=== PATIENT | female | born 1955 | race American Indian/Alaskan Native ===

== ENCOUNTER 2018-06-25 14:37 | Emergency (ER) | payer SELFPAY ==
--- NOTE | 2018-06-25 15:32 | Emergency Department Report ---
ED Lower Extremity HPI - General Chief Complaint: Extremity Injury, Lower Stated Complaint: LT FOOT /BODY PAIN Time Seen by Provider: 06/25/18 15:26 Source: patient Mode of arrival: Ambulatory Limitations: No Limitations - History of Present Illness Initial Comments: This is a 63-year-old female nontoxic, well nourished in appearance, no acute signs of distress presents to the ED with c/o of acute on chronic left foot pain. Patient stated that she was diagnosed with foot spur. Patient seen her PCP Dr. Corea and had xrays done. Patient is scheduled to see orthopedic doctor this week for MRI. Patient today is requesting an MRI. Patient denies any new trauma. Patient denies any numbness, tingling, fever, chills, nausea, vomiting, chest pain, shortness of breath, headache, stiff neck. Patient denies any joint swelling or joint redness. Patient denies decreased range of motion. Patient stated has decreased gait due to pain. -: year(s) Injury: Foot: Left Severity: mild Severity scale (0 -10): 8 Improves With: immobilization Worsens With: weight bearing, palpation Associated Symptoms: able to partially bear weight, ambulatory. denies: snap/pop sensation, swelling, numbness, tingling, unable to bear weight - Related Data Allergies Allergy/AdvReac Type Severity Reaction Status Date / Time amitriptyline Allergy Unknown Verified 06/25/18 15:01 aripiprazole [From Abilify] Allergy Unknown Verified 06/25/18 15:02 ED Review of Systems ROS: Stated complaint: LT FOOT /BODY PAIN Other details as noted in HPI Constitutional: denies: chills, fever Eyes: denies: eye pain, eye discharge, vision change ENT: denies: ear pain, throat pain Respiratory: denies: cough, shortness of breath, wheezing Cardiovascular: denies: chest pain, palpitations Endocrine: no symptoms reported Gastrointestinal: denies: abdominal pain, nausea, diarrhea Genitourinary: denies: urgency, dysuria, discharge Musculoskeletal: denies: back pain, joint swelling, arthralgia Skin: denies: rash, lesions Neurological: denies: headache, weakness, paresthesias Psychiatric: denies: anxiety, depression Hematological/Lymphatic: denies: easy bleeding, easy bruising ED Past Medical Hx - Past Medical History Previous Medical History?: Yes Hx Psychiatric Treatment: Yes (Bi Polar, Schizophrenia, PTSD, Psychosis) - Surgical History Past Surgical History?: No - Social History Smoking Status: Never Smoker Substance Use Type: None ED Physical Exam - General Limitations: No Limitations General appearance: alert, in no apparent distress - Head Head exam: Present: atraumatic, normocephalic - Extremities Exam Extremities exam: Present: normal inspection, full ROM, tenderness (heel of left foot), normal capillary refill, other (normal santos test). Absent: joint swelling - Back Exam Back exam: Present: normal inspection, full ROM - Neurological Exam Neurological exam: Present: alert, oriented X3 - Psychiatric Psychiatric exam: Present: normal affect, normal mood - Skin Skin exam: Present: warm, dry, intact, normal color. Absent: rash ED Course Vital Signs 06/25/18 14:57 Temperature 98.2 F Pulse Rate 87 Respiratory 16 Rate Blood Pressure 127/56 O2 Sat by Pulse 97 Oximetry - Reevaluation(s) Reevaluation #1: 06/25/18 15:30 Patient is speaking in full sentences with no signs of distress noted. ED Lower Extremity MDM - Medical Decision Making This is a 63-year-old female that presents with left foot pain. Patient is stable and was examined by me. I referred patient to an orthopedic doctor for further evaluation for possible MRI. X-ray has been obtained in her PCP office as per patient within normal limits. Patient does have normal gait with no tenderness and no joint swelling. No ecchymosis. no joint redness or swelling. Not warm to touch. No signs of cellulites present. Patient stated has Tylneol and Tramadol for pain at home. Patient is discharged with Motrin. At time of discharge, the patient does not seem toxic or ill in appearance. No acute signs of distress noted. Patient agrees to discharge treatment plan of care. No further questions noted by the patient. Critical care attestation.: If time is entered above; I have spent that time in minutes in the direct care of this critically ill patient, excluding procedure time. ED Disposition Clinical Impression: Left foot pain Disposition: DC-01 TO HOME OR SELFCARE Is pt being admited?: No Does the pt Need Aspirin: No Condition: Stable Additional Instructions: Follow-up with a orthopedic doctor in 3-5 days or if symptoms worsen and continue return to emergency room as soon as possible. Referrals: PRIMARY CARE, [Referring] - 3-5 Days WINSTON BEE MD [Staff Physician] - 3-5 Days [facility] [Outside] - 3-5 Days
== END 2018-06-25 16:30 | disposition home or self-care (01) ==
LOC: ED 14:37
CPT/HCPCS: 99281

== ENCOUNTER 2018-06-27 17:48 | Inpatient (IN) | payer MEDICARE ==
[2018-06-27] MEDS ORDERED: PEPCID IV ONE (20:23)
[2018-06-27] MEDS ORDERED: NACL 0.9% 1000 ML 1,000 ML IV ONE (20:23)
[2018-06-27] MEDS ORDERED: ZOFRAN IV ONE (20:23)
[2018-06-27] MEDS ORDERED: PROTONIX IV ONE (20:23)
[2018-06-27] MEDS ORDERED: TYLENOL PO ONE (20:25)
--- NOTE | 2018-06-27 20:25 | Emergency Department Report ---
ED General Adult HPI - General Chief complaint: Chest Pain Stated complaint: CHEST PAIN/ALONZO Time Seen by Provider: 06/27/18 20:11 Source: patient, RN notes reviewed Mode of arrival: Stretcher Limitations: No Limitations - History of Present Illness Initial comments: This is a 63-year-old female, not known to this provider previously, reports that all of her private physicians are currently in [place]. Past medical history includes atrial fibrillation, presumably paroxysmal, and is currently on systemic anticoagulation, mony Also endorses a past history of asthma, diabetes, obesity, bipolar, schizophrenia, PTSD. Patient presents to the emergency room with a complaint of bright red blood emesis, 3-4 times today. This is accompanied by central chest pain, epigastric pain. The chest pain does not radiates to the back, arms or neck. There is chronic shortness of breath which is not a new, worsening or different. There is no bright red blood per rectum. No black, tarry stools. Patient endorses taking iron sulfate supplementation. Denies fever, positive cough, no lower abdominal pain, reports compliance with her systemic anticoagula tion, denies DVT, pulmonary embolus risk factors, and also reports no recent aspirin use. Symptoms are intermittent today, did not radiate anywhere, worse with palpation, attempting to eat, decreased with rest. -: Gradual Location: chest, abdomen Radiation: non-radiation Severity scale (0 -10): 5 Quality: aching Consistency: intermittent Improves with: other Worsens with: other Associated Symptoms: chest pain, loss of appetite, malaise, nausea/vomiting, weakness. denies: confusion, cough, diaphoresis, fever/chills, headaches, rash, seizure, shortness of breath, syncope - Related Data Allergies Allergy/AdvReac Type Severity Reaction Status Date / Time amitriptyline Allergy Unknown Verified 06/27/18 18:03 aripiprazole [From Abilify] Allergy Unknown Verified 06/27/18 18:03 ED Review of Systems ROS: Stated complaint: CHEST PAIN/ALONZO Other details as noted in HPI Constitutional: malaise Eyes: denies: eye discharge ENT: denies: epistaxis Respiratory: denies: wheezing Cardiovascular: chest pain Gastrointestinal: abdominal pain, hematemesis. denies: melena, hematochezia Genitourinary: denies: dysuria Musculoskeletal: arthralgia, myalgia Skin: denies: lesions Neurological: weakness Psychiatric: anxiety ED Past Medical Hx - Past Medical History Previous Medical History?: Yes Hx Diabetes: Yes Hx Psychiatric Treatment: Yes (Bi Polar, Schizophrenia, PTSD, Psychosis) Hx Asthma: Yes - Social History Smoking Status: Never Smoker Substance Use Type: None ED Physical Exam - General Limitations: No Limitations General appearance: alert, anxious, obese - Head Head exam: Present: atraumatic, normocephalic - Eye Eye exam: Present: normal appearance, EOMI - ENT ENT exam: Present: normal exam, normal orophraynx, mucous membranes moist, normal external ear exam - Neck Neck exam: Present: normal inspection, full ROM. Absent: tenderness, meningi smus - Respiratory Respiratory exam: Present: normal lung sounds bilaterally, chest wall tenderness, other (there is no breast tenderness. Chaperoned by nurse CONNER STEVENS). Absent: respiratory distress, wheezes, rales, rhonchi, stridor - Cardiovascular Cardiovascular Exam: Present: regular rate, normal rhythm, normal heart sounds. Absent: bradycardia, tachycardia, irregular rhythm, systolic murmur, diastolic murmur, rubs, gallop - GI/Abdominal GI/Abdominal exam: Present: soft. Absent: distended, tenderness, guarding, rebound, rigid, pulsatile mass - Rectal Rectal exam: Present: normal inspection, normal rectal tone, heme (-) stool, fecal impaction, other (chaperoned by CONNER Hoffman). Absent: heme (+) stool, bloody stool - Extremities Exam Extremities exam: Present: normal inspection, full ROM. Absent: pedal edema, joint swelling - Back Exam Back exam: Present: normal inspection, full ROM. Absent: tenderness, CVA tenderness (R), paraspinal tenderness, vertebral tenderness - Neurological Exam Neurological exam: Present: alert, oriented X3, other (Extraocular movements intact. Tongue midline. No facial droop. Facial sensation intact to light touch in the V1, V2, V3 distribution bilaterally. 5 and 5 strength in 4 extremities.. Sensation is intact to light touch in 4 extremities.). Absent: motor sensory deficit - Psychiatric Psychiatric exam: Present: anxious - Skin Skin exam: Present: warm, dry, intact, normal color. Absent: rash ED Course Vital Signs 06/27/18 06/27/18 18:04 20:11 Temperature 99.1 F 99.8 F H Pulse Rate 82 78 Respiratory 20 18 Rate Blood Pressure 111/46 Blood Pressure 127/50 [Left] O2 Sat by Pulse 99 100 Oximetry - Reevaluation(s) Reevaluation #1: 06/27/18 21:41 Differential diagnosis, including but not limited to: GERD, gastritis, hiatal hernia, upper GI bleed, Li-Ballard tear, retroperitoneal hematoma, pneumonia, pneumothorax, acute coronary syndrome Assessment and plan: 63-year-old female, no tachycardia, no hypoxia, on systemic anticoagulation, low risk by well's criteria, who reports no DVT or pulmonary embolus risk factors, with reproducible chest wall pain, and reported episodes of bloody emesis, in the context of being on systemic anticoagulation. Has a low-grade temperature, but otherwise has reassuring vital signs. Found to have renal insufficiency, hypomagnesemia, mildly anemic. Not acutely asymptomatic in terms of anemia, and hemoglobin greater than 7, therefore does not require packed red blood cell transfusion. Patient will remain nothing by mouth, she will be given pain medication, nausea medication, Protonix, per anticoagulation will be held, and we will obtain a gastroenterology consult. X-ray of the chest is unremarkable, lactic acid within normal limits, urinalysis pending, and a noncontrast CT scan of the abdomen and pelvis is pending interpretation. Patient will require admission to the hospital for her chest pain, anemia, hypomagnesemia, and report of gastrointestinal bleed. Aspirin will be withheld given history of GI bleed. Hospital team will admit the patient. Reevaluation #2: 06/27/18 21:45 Dr Dashawn Miller accepts to the medical service. Reevaluation #3: 06/27/18 22:27 CT scan suggests constipation, possible pneumonia versus pneumonitis. Antibiotics ordered. - Consultations Consultation #1: 06/27/18 21:48 Gastroenterology, Dr. Bland, agrees to follow in consultation. ED Medical Decision Making - Lab Data Result diagrams: 06/27/18 20:41 06/27/18 20:41 Vital Signs 06/27/18 06/27/18 18:04 20:11 Temperature 99.1 F 99.8 F H Pulse Rate 82 78 Respiratory 20 18 Rate Blood Pressure 111/46 Blood Pressure 127/50 [Left] O2 Sat by Pulse 99 100 Oximetry Lab Results 06/27/18 06/27/18 06/27/18 Range/Units 20:41 20:41 20:41 WBC 11.5 H (4.5-11.0) K/mm3 RBC 3.73 (3.65-5.03) M/mm3 Hgb 9.3 L (10.1-14.3) gm/dl Hct 29.0 L (30.3-42.9) % MCV 78 L (79-97) fl MCH 25 L (28-32) pg MCHC 32 (30-34) % RDW 14.0 (13.2-15.2) % Plt Count 199 (140-440) K/mm3 Lymph % (Auto) 18.6 (13.4-35.0) % [place] % (Auto) 9.5 H (0.0-7.3) % Eos % (Auto) 1.6 (0.0-4.3) % Baso % (Auto) 0.2 (0.0-1.8) % Lymph # 2.2 (1.2-5.4) K/mm3 [place] # 1.1 H (0.0-0.8) K/mm3 Eos # 0.2 (0.0-0.4) K/mm3 Baso # 0.0 (0.0-0.1) K/mm3 Seg Neutrophils % 70.1 H (40.0-70.0) % Seg Neutrophils # 8.1 H (1.8-7.7) K/mm3 APTT 29.7 (24.2-36.6) Sec. Sodium (137-145) mmol/L Potassium (3.6-5.0) mmol/L Chloride (98-107) mmol/L Carbon Dioxide (22-30) mmol/L Anion Gap mmol/L BUN (7-17) mg/dL Creatinine (0.7-1.2) mg/dL Estimated GFR ml/min BUN/Creatinine Ratio % Glucose (65-100) mg/dL Lactic Acid 0.70 (0.7-2.0) mmol/L Calcium (8.4-10.2) mg/dL Magnesium (1.7-2.3) mg/dL Total Bilirubin (0.1-1.2) mg/dL AST (5-40) units/L ALT (7-56) units/L Alkaline Phosphatase (35-129) units/L Troponin T (0.00-0.029) ng/mL Total Protein (6.3-8.2) g/dL Albumin (3.9-5) g/dL Albumin/Globulin Ratio % Lipase (13-60) units/L Blood Type 06/27/18 06/27/18 Range/Units 20:41 20:47 WBC (4.5-11.0) K/mm3 RBC (3.65-5.03) M/mm3 Hgb (10.1-14.3) gm/dl Hct (30.3-42.9) % MCV (79-97) fl MCH (28-32) pg MCHC (30-34) % RDW (13.2-15.2) % Plt Count (140-440) K/mm3 Lymph % (Auto) (13.4-35.0) % [place] % (Auto) (0.0-7.3) % Eos % (Auto) (0.0-4.3) % Baso % (Auto) (0.0-1.8) % Lymph # (1.2-5.4) K/mm3 [place] # (0.0-0.8) K/mm3 Eos # (0.0-0.4) K/mm3 Baso # (0.0-0.1) K/mm3 Seg Neutrophils % (40.0-70.0) % Seg Neutrophils # (1.8-7.7) K/mm3 APTT (24.2-36.6) Sec. Sodium 137 (137-145) mmol/L Potassium 3.5 L (3.6-5.0) mmol/L Chloride 98.9 (98-107) mmol/L Carbon Dioxide 26 (22-30) mmol/L Anion Gap 16 mmol/L BUN 26 H (7-17) mg/dL Creatinine 1.7 H (0.7-1.2) mg/dL Estimated GFR 37 ml/min BUN/Creatinine Ratio 15 % Glucose 196 H (65-100) mg/dL Lactic Acid (0.7-2.0) mmol/L Calcium 8.4 (8.4-10.2) mg/dL Magnesium 1.50 L (1.7-2.3) mg/dL Total Bilirubin 0.60 (0.1-1.2) mg/dL AST 16 (5-40) units/L ALT 14 (7-56) units/L Alkaline Phosphatase 67 (35-129) units/L Troponin T < 0.010 (0.00-0.029) ng/mL Total Protein 6.8 (6.3-8.2) g/dL Albumin 3.5 L (3.9-5) g/dL Albumin/Globulin Ratio 1.1 % Lipase 32 (13-60) units/L Blood Type B POSITIVE - EKG Data -: EKG Interpreted by Me EKG shows normal: sinus rhythm Rate: normal - EKG Data When compared to previous EKG there are: previous EKG unavailable 06/27/18 21:43 Sinus, 72 beats per minutes, QTC within normal limits, left axis deviation, low voltage, motion artifact, poor O progression, no prior for comparison, not consistent with ST elevation myocardial infarction. - Radiology Data Radiology results: pending, report reviewed, image reviewed X-ray the chest is negative for acute disease. Critical care attestation.: If time is entered above; I have spent that time in minutes in the direct care of this critically ill patient, excluding procedure time. ED Disposition Clinical Impression: SHIRLEY (acute kidney injury), UGIB (upper gastrointestinal bleed), Hypomagnesemia, History of chest pain Disposition: -09 OP ADMIT IP TO THIS HOSP Is pt being admited?: Yes Condition: Good
[2018-06-27 20:57] LABS: Basophils % (Auto) 0.2 % (0.0-1.8); Eosinophils # (Auto) 0.2 K/mm3 (0.0-0.4); Eosinophils % (Auto) 1.6 % (0.0-4.3); Hemoglobin 9.3 gm/dl (10.1-14.3); Lymphocytes # (Auto) 2.2 K/mm3 (1.2-5.4); Lymphocytes % (Auto) 18.6 % (13.4-35.0); Mean Corpuscular HGB Conc 32 % (30-34); Mean Corpuscular Volume 78 fl (79-97); Monocytes # (Auto) 1.1 K/mm3 (0.0-0.8); Monocytes % (Auto) 9.5 % (0.0-7.3); Platelet Count 199 K/mm3 (140-440); Red Blood Count 3.73 M/mm3 (3.65-5.03)
[2018-06-27 21:18] LABS: Alanine Aminotransferase 14 units/L (7-56); Albumin 3.5 g/dL (3.9-5); BUN/Creatinine Ratio 15; Blood Urea Nitrogen 26 mg/dL (7-17); Calcium 8.4 mg/dL (8.4-10.2); Hemolysis Index 1
--- NOTE | 2018-06-27 21:30 | XRay Report ---
FINAL REPORT PROCEDURE: XR CHEST ROUTINE 2V TECHNIQUE: PA and lateral chest radiographs were obtained. CPT 62515 HISTORY: chest pain, nausea vomiting, low-grade fever COMPARISON: No prior studies are available for comparison. FINDINGS: Heart: Normal. Mediastinum/Vessels: Normal. Lungs/Pleural space: No radiographic evidence of infiltrate, pleural effusion, or pneumothorax. Bony thorax: No acute osseous abnormality. Other: IMPRESSION: No pulmonary infiltrates are identified.
[2018-06-27] MEDS ORDERED: MAGNESIUM SULFATE 2GM/50ML 2 GM/50 ML BAG IV ONE (21:37)
[2018-06-27 21:45] LABS: INR 1.3 (0.87-1.13)
--- NOTE | 2018-06-27 22:22 | Cat Scan Report ---
FINAL REPORT PROCEDURE: CT ABDOMEN PELVIS WO CON TECHNIQUE: Computerized axial tomography of the abdomen and pelvis was performed without intravenous contrast. This study is performed without intravascular contrast material and its sensitivity for ab dominal and pelvic pathology, including neoplasms, inflammation, abscess, free fluid, thrombosis, art erial dissection and infarction, is reduced compared with a contrast enhanced study. HISTORY: abdominal pain, hematemesis, fever COMPARISON: No prior studies are available for comparison. FINDINGS: Visualized lower thorax: Patchy ground-glass airspace opacities are seen in the visualized portions o f the right middle lobe, lingula, and left lower lobe, which may be related to pneumonia. Liver: Normal size and attenuation. Spleen: Normal size and attenuation. Gallbladder and biliary system: Gallbladder is present. Common bile duct is at the upper limit of nor mal in size. Pancreas: Normal. Adrenals: Normal. Kidneys: There are several right renal calculi with no obstruction, measuring up to 1 centimeter. No hydronephrosis. There is mild bilateral perinephric stranding. GI tract: There is a large volume of stool in the colon. Small hiatal hernia. No bowel obstruction or inflammation. Appendix is not visualized. Lymph nodes and mesentery: Normal. Vasculature: Normal. Bladder: Normal. Reproductive organs: Uterus is absent. Peritoneum: No free fluid. Musculoskeletal structures: No significant abnormality. Other: None. IMPRESSION: There are patchy ground-glass airspace opacities in the visualized portions of the lung bases, which could be infectious. Large volume of stool is present throughout the colon. Correlate for constipation.
[2018-06-27] MEDS ORDERED: NITROSTAT SL PRN (22:23)
[2018-06-27] MEDS ORDERED: ZOFRAN IV PRN (22:24)
[2018-06-27] MEDS ORDERED: ROCEPHIN/NS 1 GM/50 ML 1 GM/50 ML BAG IV ONE (22:25)
[2018-06-27] MEDS ORDERED: TYLENOL PO PRN (22:25)
[2018-06-27] MEDS ORDERED: PROVENTIL IH PRN (22:36)
[2018-06-27] MEDS ORDERED: D50W (25GM) Syringe IV PRN (22:39)
[2018-06-27] MEDS ORDERED: NACL 0.9% 1000 ML 1,000 ML IV SCH (23:00)
[2018-06-28 01:11] LABS: Hematocrit 28.1 % (30.3-42.9); Hemoglobin 9.1 gm/dl (10.1-14.3)
[2018-06-28 01:33] LABS: Creatine Kinase MB 1.1 ng/mL (0.0-4.0)
[2018-06-28 06:12] LABS: Hematocrit 28.7 % (30.3-42.9); Hemoglobin 9.4 gm/dl (10.1-14.3)
[2018-06-28] MEDS: HumaLOG SUB-Q SCH ×6 (06:18→22:37)
[2018-06-28] MEDS: NITRO-BID 2% TP SCH ×4 (06:19→17:58)
[2018-06-28 06:32] LABS: Creatine Kinase MB 1.2 ng/mL (0.0-4.0)
[2018-06-28 06:35] LABS: BUN/Creatinine Ratio 14; Blood Urea Nitrogen 22 mg/dL (7-17); Hemolysis Index 2
[2018-06-28] MEDS ORDERED: LEXISCAN IV ONE ×2 (09:55→09:57)
[2018-06-28] MEDS ORDERED: ZITHROMAX PO SCH (10:00)
--- NOTE | 2018-06-28 10:03 | Consultation ---
History of Present Illness - Reason for Consult Consult date: 06/28/18 chronic renal failure - History of Present Illness This is a 63 year old female who presents to the E.R with chief complaints of vomiting bright red blood for the past couple days and chest/epigastric pain. On evaluation pertinent labs revealed an elevated serum creatinine of 1.7. Patient reports she has knonw CKd stage 3 and follows with a kidney doctor in [place] and is scheduled to see them again on the . Patient has history of Diabetes mellitus, Asthma, Afib on Eliquis, Bipolar and Schizophrenia. We are being consulted for management of this patient's CKD stage 3. Past History Past Medical History: atrial fib, diabetes, other (PTSD, Bipolar, schizophrenia, Obesity) Past Surgical History: No surgical history Social history: no significant social history Family history: no significant family history Medications and Allergies Allergies Allergy/AdvReac Type Severity Reaction Status Date / Time amitriptyline Allergy Unknown Verified 06/27/18 18:03 aripiprazole [From Abilify] Allergy Unknown Verified 06/27/18 18:03 Home Medications Medication Instructions Recorded Confirmed Last Taken Type Calcium 06/28/18 06/25/18 History Eliquis PO BID 06/28/18 06/26/18 History Magnesium 06/28/18 Unknown History Quetiapine Fumarate [Seroquel] 100 mg PO QHS 06/28/18 06/28/18 06/26/18 History 100 MG Vitamin D (Nf) 06/28/18 06/25/18 History Vortioxetine Hydrobromide 20 mg PO HS 06/28/18 06/28/18 06/26/18 History [Brintellix] 20 MG Active Meds: Active Medications Acetaminophen (Tylenol) 650 mg PO Q4H PRN PRN Reason: Headache Albuterol (Proventil) 2.5 mg IH Q6HRT PRN PRN Reason: Shortness Of Breath Dextrose (D50w (25gm) Syringe) 50 ml IV PRN PRN PRN Reason: Hypoglycemia Sodium Chloride (Nacl 0.9% 1000 Ml) 1,000 mls @ 75 mls/hr IV DIRECT DORYS Piperacillin Sod/Tazobactam Sod (Zosyn/Ns 3.375gm/50ml) 3.375 gm in 50 mls @ 100 mls/hr IV Q8HR DORYS; Protocol Insulin Human Lispro (Humalog) 0 unit SUB-Q Q4HR [facility]; Protocol Last Admin: 06/28/18 06:19 Dose: Not Given Documented by: Morphine Sulfate (Morphine) 2 mg IV Q3H PRN PRN Reason: Pain, Moderate (4-6) Nitroglycerin (Nitrostat) 0.4 mg SL .Q5MIN PRN PRN Reason: Chest Pain Nitroglycerin (Nitro-Bid 2%) 0.5 inch TP QIDNTG [facility]; Protocol Last Admin: 06/28/18 06:19 Dose: Not Given Documented by: Ondansetron HCl (Zofran) 4 mg IV Q8H PRN PRN Reason: Nausea And Vomiting Pantoprazole Sodium (Protonix) 40 mg IV BID [facility] Regadenoson (Lexiscan) 0.4 mg IV ONCE ONE Stop: 06/28/18 09:58 Review of Systems Constitutional: fatigue, no weight loss, no weight gain, no fever, no chills Ears, nose, mouth and throat: no ear pain, no ear discharge, no tinnitis, no decreased hearing, no nose pain, no nasal congestion Cardiovascular: no orthopnea, no palpitations, no rapid/irregular heart beat, no syncope, no lightheadedness, no shortness of breath Respiratory: no cough with sputum, no excessive sputum, no hemoptysis, no shortness of breath, no dyspnea on exertion Gastrointestinal: hematemesis, no vomiting, no diarrhea, no constipation, no change in bowel habits Genitourinary Female: no dysmenorrhea, no pelvic pain, no flank pain, no menorrhagia, no dysuria, no urinary frequency, no urgency Rectal: no pain, no incontinence, no bleeding, no itching Musculoskeletal: no neck pain, no shooting arm pain, no arm numbness/tingling, no low back pain Integumentary: no rash, no pruritis, no redness, no sores, no wounds Neurological: no head injury, no paralysis, no weakness, no parathesias, no numbness Psychiatric: anxiety Endocrine: no cold intolerance, no heat intolerance, no polyphagia, no excessive thirst, no polydipsia, no polyuria Hematologic/Lymphatic: no easy bruising, no easy bleeding Exam - Vital Signs Vital signs: Vital Signs Temp Pulse Resp BP Pulse Ox 99.1 F 82 20 111/46 99 02/06/19 18:04 06/27/18 18:04 06/27/18 18:04 06/27/18 18:04 06/27/18 18:04 - General Appearance General appearance: well-developed, appears stated age, fatigue EENT: ATNC, PERRL, hearing intact, vision intact Neck: Present: neck supple, trachea midline Respiratory: Decreased Breath Sounds Heart: regular, S1S2 Gastrointestinal: Present: normoactive bowel sounds Integumentary: warm and dry Neurologic: alert and oriented x3 Musculoskeletal: Present: other (No edema) Psychiatric: agitated, other (crying stating she has no phone in room and that she does not like the hospital diaper) Results - Lab Results 06/28/18 05:39 06/28/18 05:39 Most recent lab results Calcium 8.0 mg/dL (8.4-10.2) L 06/28/18 05:39 Magnesium 2.00 mg/dL (1.7-2.3) 06/28/18 05:39 Assessment and Plan Chronic Kidney Disease, stage 3 secondary to DM -Serum creatinine 1.6 today and was 1.7 yesterday. Baseline serum creatinine unknown but patient states she has CKD stage 3 -No renal ultrasound due to obesity -Obtain urine lytes and eosinophils -Continue on NS@ 75 ml/hr -Avoid nephrotoxic agents -Monitor I/O's -Obtain daily weights -Monitor renal function Hematemesis: -EGD once cleared by cardiology per GI -NPO status -Eliquis on hold -On Protonix -GI onboard Constipation: -CT scan showed large volume of stool -Placed on Miralax Chest Pain -Stress test scheduled for today Pneumonia: -Revealed on Ct scan -On IV Rocephin Diabetes Mellitus: -On insulin -As per primary
--- NOTE | 2018-06-28 10:20 | Gastroenterology Consultation ---
<EMREALD CHENEY - Last Filed: 06/28/18 10:42> History of Present Illness - Reason for Consult Consult date: 06/28/18 GI bleed Requesting physician: JUANY CHANG - History of Present Illness Patient is a 63 y/o female with PMH of Afib (on Eliquis), asthma, DM, obesity, GERD, bipolar, schizophrenia, and PTSD who presented to ED with c/o vomiting blood to which GI has been consulted with associated epigastric pain and chest pain. Found to have renal insufficiency, hypomagnesemia, and mild anemia upon admission. Stress test pending for today. This morning patient was resting in bed w/o acute distress. Reports vomiting x 1 episode yesterday with a small amount of bright red bloody emesis with no further episodes overnight or this am. No melena or hematochezia. States chest pain is now improved and has no current abd pain. Denies fever, SOB, wt loss, dysphagia, odynophagia, or LGI symptoms. Constipation was seen on abd CT. Last dose of Eliquis was 2 days ago. No NSAID use. No hx of PUD or liver disease. Last EGD/colonoscopy approximately 2 years ago in [place] with negative results except hiatal hernia per pt report (records unavailable). Past History Past Medical History: other (as per HPI) Social history: denies: smoking, alcohol abuse Medications and Allergies Allergies Allergy/AdvReac Type Severity Reaction Status Date / Time amitriptyline Allergy Unknown Verified 06/27/18 18:03 aripiprazole [From Abilify] Allergy Unknown Verified 06/27/18 18:03 Home Medications Medication Instructions Recorded Confirmed Last Taken Type Calcium 06/28/18 06/25/18 History Eliquis PO BID 06/28/18 06/26/18 History Magnesium 06/28/18 Unknown History Quetiapine Fumarate [Seroquel] 100 mg PO QHS 06/28/18 06/28/18 06/26/18 History 100 MG Vitamin D (Nf) 06/28/18 06/25/18 History Vortioxetine Hydrobromide 20 mg PO HS 06/28/18 06/28/18 06/26/18 History [Brintellix] 20 MG Active Meds: Active Medications Acetaminophen (Tylenol) 650 mg PO Q4H PRN PRN Reason: Headache Albuterol (Proventil) 2.5 mg IH Q6HRT PRN PRN Reason: Shortness Of Breath Dextrose (D50w (25gm) Syringe) 50 ml IV PRN PRN PRN Reason: Hypoglycemia Sodium Chloride (Nacl 0.9% 1000 Ml) 1,000 mls @ 75 mls/hr IV DIRECT DOR[facility] Piperacillin Sod/Tazobactam Sod (Zosyn/Ns 3.375gm/50ml) 3.375 gm in 50 mls @ 100 mls/hr IV Q8HR [facility]; Protocol Insulin Human Lispro (Humalog) 0 unit SUB-Q Q4HR [facility]; Protocol Last Admin: 06/28/18 06:19 Dose: Not Given Documented by: Morphine Sulfate (Morphine) 2 mg IV Q3H PRN PRN Reason: Pain, Moderate (4-6) Nitroglycerin (Nitrostat) 0.4 mg SL .Q5MIN PRN PRN Reason: Chest Pain Nitroglycerin (Nitro-Bid 2%) 0.5 inch TP QIDNTG [facility]; Protocol Last Admin: 06/28/18 06:19 Dose: Not Given Documented by: Ondansetron HCl (Zofran) 4 mg IV Q8H PRN PRN Reason: Nausea And Vomiting Pantoprazole Sodium (Protonix) 40 mg IV BID [facility] Regadenoson (Lexiscan) 0.4 mg IV ONCE ONE Stop: 06/28/18 09:58 medications reviewed/updated as required Review of Systems - Review of Systems All systems: negative Gastrointestinal: hematemesis Exam - Constitutional Vital Signs: Temp Pulse Resp BP Pulse Ox 98.4 F 60 18 134/54 97 06/28/18 08:06 06/28/18 08:06 06/28/18 08:06 06/28/18 08:06 06/28/18 08:06 General appearance: no acute distress - EENT Eyes: PERRL, EOM intact ENT: hearing intact - Respiratory Respiratory: bilateral: CTA (anterior) - Cardiovascular Rhythm: regular Heart Sounds: Present: S1 & S2 - Gastrointestinal General gastrointestinal: Present: soft, non-tender, non-distended, normal bowel sounds - Neurologic Neurological: alert and oriented x3 - Labs CBC & Chem 7: 06/28/18 05:39 06/28/18 05:39 Lab Results: Laboratory Results - last 24 hr 06/27/18 06/27/18 06/27/18 20:41 20:41 20:41 WBC 11.5 H RBC 3.73 Hgb 9.3 L Hct 29.0 L MCV 78 L MCH 25 L MCHC 32 RDW 14.0 Plt Count 199 Lymph % (Auto) 18.6 Mcintosh % (Auto) 9.5 H Eos % (Auto) 1.6 Baso % (Auto) 0.2 Lymph # 2.2 Mcintosh # 1.1 H Eos # 0.2 Baso # 0.0 Seg Neutrophils % 70.1 H Seg Neutrophils # 8.1 H PT 16.6 H INR 1.30 H APTT Sodium Potassium Chloride Carbon Dioxide Anion Gap BUN Creatinine Estimated GFR BUN/Creatinine Ratio Glucose POC Glucose Lactic Acid 0.70 Calcium Magnesium Total Bilirubin AST ALT Alkaline Phosphatase Total Creatine Kinase CK-MB (CK-2) CK-MB (CK-2) Rel Index Troponin T Total Protein Albumin Albumin/Globulin Ratio Lipase Blood Type Antibody Screen 06/27/18 06/27/18 06/27/18 20:41 20:41 20:47 WBC RBC Hgb Hct MCV MCH MCHC RDW Plt Count Lymph % (Auto) Mcintosh % (Auto) Eos % (Auto) Baso % (Auto) Lymph # Mcintosh # Eos # Baso # Seg Neutrophils % Seg Neutrophils # PT INR APTT 29.7 Sodium 137 Potassium 3.5 L Chloride 98.9 Carbon Dioxide 26 Anion Gap 16 BUN 26 H Creatinine 1.7 H Estimated GFR 37 BUN/Creatinine Ratio 15 Glucose 196 H POC Glucose Lactic Acid Calcium 8.4 Magnesium 1.50 L Total Bilirubin 0.60 AST 16 ALT 14 Alkaline Phosphatase 67 Total Creatine Kinase CK-MB (CK-2) CK-MB (CK-2) Rel Index Troponin T < 0.010 Total Protein 6.8 Albumin 3.5 L Albumin/Globulin Ratio 1.1 Lipase 32 Blood Type B POSITIVE Antibody Screen Negative 06/28/18 06/28/18 06/28/18 00:53 00:53 05:39 WBC RBC Hgb 9.1 L 9.4 L Hct 28.1 L 28.7 L MCV MCH MCHC RDW Plt Count Lymph % (Auto) Mcintosh % (Auto) Eos % (Auto) Baso % (Auto) Lymph # Mcintosh # Eos # Baso # Seg Neutrophils % Seg Neutrophils # PT INR APTT Sodium Potassium Chloride Carbon Dioxide Anion Gap BUN Creatinine Estimated GFR BUN/Creatinine Ratio Glucose POC Glucose Lactic Acid Calcium Magnesium Total Bilirubin AST ALT Alkaline Phosphatase Total Creatine Kinase 139 H CK-MB (CK-2) 1.1 CK-MB (CK-2) Rel Index 0.7 Troponin T < 0.010 Total Protein Albumin Albumin/Globulin Ratio Lipase Blood Type Antibody Screen 06/28/18 06/28/18 05:39 06:05 WBC RBC Hgb Hct MCV MCH MCHC RDW Plt Count Lymph % (Auto) Mcintosh % (Auto) Eos % (Auto) Baso % (Auto) Lymph # Mcintosh # Eos # Baso # Seg Neutrophils % Seg Neutrophils # PT INR APTT Sodium 140 Potassium 4.0 Chloride 102.5 Carbon Dioxide 28 Anion Gap 14 BUN 22 H Creatinine 1.6 H Estimated GFR 39 BUN/Creatinine Ratio 14 Glucose 204 H POC Glucose 232 H Lactic Acid Calcium 8.0 L Magnesium 2.00 Total Bilirubin AST ALT Alkaline Phosphatase Total Creatine Kinase 127 CK-MB (CK-2) 1.2 CK-MB (CK-2) Rel Index 0.9 Troponin T < 0.010 Total Protein Albumin Albumin/Globulin Ratio Lipase Blood Type Antibody Screen Assessment and Plan 1.hematemesis 2.mild anemia -stool occult negative -H/H 9.4/28.7-stable (unknown baseline; related to renal insufficiency?) -continue to monitor H/H and transfuse as needed -patient reports 1 episode of vomiting a small amount of bright red blood yesterday. No melena, hematochezia, or current abd pain. Vomiting improved. -last EGD/colonoscopy in [place] approximately 2 years ago per pt reports with negative results except hiatal hernia (records unavailable) -currently HD stable-no active signs of bleeding this am -etiology-possibly 2/2 esophagitis vs other -will consider EGD once cleared by cardiology, based on clinical course -Keep NPO for now -hold blood thinning medications -continue PPI and supportive care -will follow 2.constipation seen on CT -start on daily Miralax 3.CP -improved -cardiac enzymes negative -stress test pending for today 4.pneumonia -on antibiotics -management per primary team <FIONA ASHFORD - Last Filed: 06/28/18 15:53> Medications and Allergies Active Meds: Active Medications Acetaminophen (Tylenol) 650 mg PO Q4H PRN PRN Reason: Headache Albuterol (Proventil) 2.5 mg IH Q6HRT PRN PRN Reason: Shortness Of Breath Dextrose (D50w (25gm) Syringe) 50 ml IV PRN PRN PRN Reason: Hypoglycemia Sodium Chloride (Nacl 0.9% 1000 Ml) 1,000 mls @ 75 mls/hr IV DIRECT DORYS Piperacillin Sod/Tazobactam Sod (Zosyn/Ns 3.375gm/50ml) 3.375 gm in 50 mls @ 100 mls/hr IV Q8HR [facility]; Protocol Last Admin: 06/28/18 14:48 Dose: 100 mls/hr Documented by: Insulin Human Lispro (Humalog) 0 unit SUB-Q Q4HR [facility]; Protocol Last Admin: 06/28/18 12:17 Dose: Not Given Documented by: Morphine Sulfate (Morphine) 2 mg IV Q3H PRN PRN Reason: Pain, Moderate (4-6) Nitroglycerin (Nitrostat) 0.4 mg SL .Q5MIN PRN PRN Reason: Chest Pain Nitroglycerin (Nitro-Bid 2%) 0.5 inch TP QIDNTG [facility]; Protocol Last Admin: 06/28/18 14:48 Dose: 0.5 inch Documented by: Ondansetron HCl (Zofran) 4 mg IV Q8H PRN PRN Reason: Nausea And Vomiting Pantoprazole Sodium (Protonix) 40 mg IV BID [facility] Last Admin: 06/28/18 12:17 Dose: 40 mg Documented by: Polyethylene Glycol (Miralax [id number]) 17 gm PO QDAY [facility] Exam - Constitutional Vital Signs: Temp Pulse Resp BP Pulse Ox 98.9 F 69 18 149/60 95 06/28/18 15:50 06/28/18 11:57 06/28/18 11:57 06/28/18 11:57 06/28/18 11:57 - Labs CBC & Chem 7: 06/28/18 05:39 06/28/18 05:39 Lab Results: Laboratory Results - last 24 hr 06/27/18 06/27/18 06/27/18 20:41 20:41 20:41 WBC 11.5 H RBC 3.73 Hgb 9.3 L Hct 29.0 L MCV 78 L MCH 25 L MCHC 32 RDW 14.0 Plt Count 199 Lymph % (Auto) 18.6 Mcintosh % (Auto) 9.5 H Eos % (Auto) 1.6 Baso % (Auto) 0.2 Lymph # 2.2 Mcintosh # 1.1 H Eos # 0.2 Baso # 0.0 Seg Neutrophils % 70.1 H Seg Neutrophils # 8.1 H PT 16.6 H INR 1.30 H APTT Sodium Potassium Chloride Carbon Dioxide Anion Gap BUN Creatinine Estimated GFR BUN/Creatinine Ratio Glucose POC Glucose Lactic Acid 0.70 Calcium Magnesium Total Bilirubin AST ALT Alkaline Phosphatase Total Creatine Kinase CK-MB (CK-2) CK-MB (CK-2) Rel Index Troponin T Total Protein Albumin Albumin/Globulin Ratio Lipase Blood Type Antibody Screen 06/27/18 06/27/18 06/27/18 20:41 20:41 20:47 WBC RBC Hgb Hct MCV MCH MCHC RDW Plt Count Lymph % (Auto) Mcintosh % (Auto) Eos % (Auto) Baso % (Auto) Lymph # Mcintosh # Eos # Baso # Seg Neutrophils % Seg Neutrophils # PT INR APTT 29.7 Sodium 137 Potassium 3.5 L Chloride 98.9 Carbon Dioxide 26 Anion Gap 16 BUN 26 H Creatinine 1.7 H Estimated GFR 37 BUN/Creatinine Ratio 15 Glucose 196 H POC Glucose Lactic Acid Calcium 8.4 Magnesium 1.50 L Total Bilirubin 0.60 AST 16 ALT 14 Alkaline Phosphatase 67 Total Creatine Kinase CK-MB (CK-2) CK-MB (CK-2) Rel Index Troponin T < 0.010 Total Protein 6.8 Albumin 3.5 L Albumin/Globulin Ratio 1.1 Lipase 32 Blood Type B POSITIVE Antibody Screen Negative 06/28/18 06/28/18 06/28/18 00:53 00:53 05:39 WBC RBC Hgb 9.1 L 9.4 L Hct 28.1 L 28.7 L MCV MCH MCHC RDW Plt Count Lymph % (Auto) Mcintosh % (Auto) Eos % (Auto) Baso % (Auto) Lymph # Mcintosh # Eos # Baso # Seg Neutrophils % Seg Neutrophils # PT INR APTT Sodium Potassium Chloride Carbon Dioxide Anion Gap BUN Creatinine Estimated GFR BUN/Creatinine Ratio Glucose POC Glucose Lactic Acid Calcium Magnesium Total Bilirubin AST ALT Alkaline Phosphatase Total Creatine Kinase 139 H CK-MB (CK-2) 1.1 CK-MB (CK-2) Rel Index 0.7 Troponin T < 0.010 Total Protein Albumin Albumin/Globulin Ratio Lipase Blood Type Antibody Screen 06/28/18 06/28/18 06/28/18 05:39 06:05 11:55 WBC RBC Hgb Hct MCV MCH MCHC RDW Plt Count Lymph % (Auto) Mcintosh % (Auto) Eos % (Auto) Baso % (Auto) Lymph # Mcintosh # Eos # Baso # Seg Neutrophils % Seg Neutrophils # PT INR APTT Sodium 140 Potassium 4.0 Chloride 102.5 Carbon Dioxide 28 Anion Gap 14 BUN 22 H Creatinine 1.6 H Estimated GFR 39 BUN/Creatinine Ratio 14 Glucose 204 H POC Glucose 232 H 200 H Lactic Acid Calcium 8.0 L Magnesium 2.00 Total Bilirubin AST ALT Alkaline Phosphatase Total Creatine Kinase 127 CK-MB (CK-2) 1.2 CK-MB (CK-2) Rel Index 0.9 Troponin T < 0.010 Total Protein Albumin Albumin/Globulin Ratio Lipase Blood Type Antibody Screen Assessment and Plan Pt states she was well until acute onset of vomiting, with coffee grounds noted immediately, and acute onset epigastric pain. She is anemic, but no evidence of acute significant bleed. - will do EGD after Cardiac clearance given that she is on anticoagulation. Plan as noted. - monitor H/H
[2018-06-28] MEDS: PROTONIX IV SCH ×2 (12:17→21:07)
[2018-06-28] MEDS: ZOSYN/NS 3.375GM/50ML 3.375 GM/50 ML BAG IV SCH ×2 (14:48→21:07)
--- NOTE | 2018-06-28 17:45 | History and Physical Report ---
CHIEF COMPLAINT: Chest pain. HISTORY OF PRESENT ILLNESS: The patient is a 63-year-old female who was having retrosternal chest pain that started yesterday 06/27/2018. The patient's pain does not radiate and also involved the epigastric area. The patient also admitted to vomiting some blood prior to coming to the Emergency Room. There is no history of diaphoresis and there is a history of associated shortness of breath. The patient denied history of dark stool or bright red blood in the stool and while seen in the Emergency Room. PAST MEDICAL HISTORY: Past medical history is pertinent for diabetes mellitus, bipolar disorder, schizophrenia, psychosis, posttraumatic stress disorder as well as asthma. PAST SURGICAL HISTORY: Unremarkable. FAMILY HISTORY: Family history is noncontributory. SOCIAL HISTORY: The patient does not smoke, does not drink alcohol and does not use illicit drug. MEDICATIONS: The patient's home medications include calcium with dose and frequency unknown, Eliquis dose and frequency unknown, magnesium dose and frequency unknown, Seroquel 100 mg by mouth every night, vitamin D dose and frequency unknown, vortioxetine hydrobromide 20 mg by mouth at bedtime. ALLERGIES: The patient is ALLERGIC TO AMITRIPTYLINE and ARIPIPRAZOLE. REVIEW OF SYSTEMS: CONSTITUTIONAL: There is no fever, no chills, no diaphoresis. HEENT: There is no headache or sore throat. CARDIOVASCULAR SYSTEM: Chest pain is present. No orthopnea. RESPIRATORY SYSTEM: Shortness of breath is noted. No cough. GASTROINTESTINAL SYSTEM: There is hematemesis and no abdominal pain, no diarrhea or constipation and no hematochezia or melena. NEUROLOGICAL SYSTEM: There is no numbness, no dizziness, no altered mental status. MUSCULOSKELETAL SYSTEM: There is no joint pain or swelling. DERMATOLOGICAL SYSTEM: There is no skin rash or itching. GENITOURINARY SYSTEM: There is no dysuria, hematuria or flank pain. Rest of system review is normal. PHYSICAL EXAMINATION: GENERAL: At the time of the examination, the patient was found to be alert, oriented x 3 and not in acute distress. VITAL SIGNS: At the initial time of presentation showed temperature of 99.1 degrees Fahrenheit, pulse of 82, respiration 20, blood pressure 111/43, O2 sat of 96 on room air. HEENT: Examination showed pupils to be equal, round, reactive to light and accommodation. Extraocular muscles are intact. NECK: Supple with no JVD or carotid bruit. CARDIOVASCULAR SYSTEM: Showed normal first and second heart sounds with no gallops or murmurs. RESPIRATORY SYSTEM: Showed good air entry on both sides of the lungs with no abnormal breath sounds. GASTROINTESTINAL SYSTEM: Showed abdomen to be full, soft, nontender with no organomegaly or rigidity. NEUROLOGIC: Examination showed no focal deficits. MUSCULOSKELETAL SYSTEM: Showed no joint swelling or tenderness. DERMATOLOGIC SYSTEM: Showed no skin rash. GENITOURINARY SYSTEM: Showing no costovertebral angle tenderness. PERTINENT LABORATORY DATA AND IMAGING STUDIES: The patient had CT of the abdomen and pelvis done and the CT showed that there are patchy ground-glass airspace opacities in the visualized portions of the lung bases, which could be infectious. There is also finding of large volume of stool throughout the colon that radiologist said correlates for the patient. The patient's chest x-ray showed no pulmonary infiltrates. ADDENDUM: The lab results shows CBC with white count of 11,500, low hemoglobin of 9.3 and low hematocrit of 29 with low MCV of 78 with CBC differential are showing a slight increase in segmented neutrophils of 70.1. The patient's coagulation studies show a slight increase in INR of 1.3 and the patient's chemistry shows slight decrease in potassium level of 3.1 with elevated BUN of 26 and elevated creatinine of 1.7 and the elevated glucose level of 196 and low magnesium of 1.5. DIAGNOSES: 1. Chest pain. 2. Hematemesis. 3. Renal insufficiency. 4. Low magnesium level. PLAN OF CARE: 1. The patient will be admitted as inpatient to telemetry. 2. The patient will continue a GI consult with Dr. Umair Mccullough of the [facility]. 3. The patient will have a nephrology consult with Dr. Robles for renal insufficiency due to chronic kidney disease. 4. The patient will be n.p.o. until seen by the surface grinding machine hand. 5. The patient will have basic metabolic panel checked this morning and will have cardiac enzymes involving troponin, total CK and CK-MB checked every 6 hours x 2 more levels. 6. The patient will be on IV Zosyn for possible infection in the lung as seen in the CAT scan. 7. The patient will be on IV Zofran 4 mg every 8 hours as needed for nausea and vomiting. 8. The patient will be on Tylenol 650 mg by mouth every 4 hours for fever and headache. 9. The patient will be on IV morphine 2 mg every 3 hours as needed for pain and on nitro paste half-inch to anterior chest wall q.i.d. 10. The patient will be on sublingual nitroglycerin 0.1 mg every 5 minutes as needed for pain and will be on IV pantoprazole 40 mg q. 12 hours. 11. The patient will have Lexiscan stress test done this morning to rule out myocardial infarction. 12. The patient will have magnesium level checked this morning having received some magnesium treatment in the Emergency Room. JOB# [id number] [facility]/NTS
[2018-06-28] MEDS: MIRALAX 3350 PO SCH (17:57)
--- NOTE | 2018-06-28 17:58 | Progress Note ---
Assessment and Plan Assessment and plan: --Atypical chest pain; probably noncardiac Stress test, negative for reversible ischemia --Hematemesis; GI evaluated the patient Patient is hemodynamically stable Continue conservative management --Bilateral pneumonia; continue empiric antibiotics, follow cultures Supportive care --Acute kidney injury; vasomotor nephropathy, avoid nephrotoxins IV hydration, nephrology following --History of bipolar/schizophrenia/PTSD/psychosis; Patient is [facility], psych evaluation And recommendations --Type 2 diabetes mellitus; to check sliding scale coverage ADA diet and insulin as needed, Check hemoglobin A1c --DVT prophylaxis; SCD Consults and recommendations noted Closely monitor patient and adjust management as needed History Interval history: 63-year-old female patient with significant history of A. fib on Eliquis diabetes mellitus GERD bipolar schizophrenia PTSD was admitted with hematemesis. Chest pain. No new episodes of hematemesis Patient is hemodynamically stable Patient feels slightly better no new complaints Vital signs noted Hospitalist Physical - Constitutional Vitals: Temp Pulse Resp BP Pulse Ox 98.9 F 75 18 145/67 95 06/28/18 15:50 06/28/18 15:51 06/28/18 15:51 06/28/18 15:51 06/28/18 15:51 General appearance: Present: no acute distress, well-nourished, obese (morbidly obese) - EENT Eyes: Present: PERRL, EOM intact - Neck Neck: Present: supple, normal ROM - Respiratory Respiratory effort: normal Respiratory: bilateral: diminished, negative: rales, rhonchi, wheezing - Cardiovascular Rhythm: regular Heart Sounds: Present: S1 & S2 - Extremities Extremities: no ischemia, No edema - Abdominal General gastrointestinal: soft, non-tender, non-distended, normal bowel sounds - Integumentary Integumentary: Present: clear, warm - Psychiatric Psychiatric: appropriate mood/affect, cooperative - Neurologic Neurologic: CNII-XII intact, moves all extremities Results - Labs CBC & Chem 7: 06/28/18 05:39 06/28/18 05:39 Labs: Laboratory Last Values WBC 11.5 K/mm3 (4.5-11.0) H 06/27/18 20:41 RBC 3.73 M/mm3 (3.65-5.03) 06/27/18 20:41 Hgb 9.4 gm/dl (10.1-14.3) L 06/28/18 05:39 Hct 28.7 % (30.3-42.9) L 06/28/18 05:39 MCV 78 fl (79-97) L 06/27/18 20:41 MCH 25 pg (28-32) L 06/27/18 20:41 MCHC 32 % (30-34) 06/27/18 20:41 RDW 14.0 % (13.2-15.2) 06/27/18 20:41 Plt Count 199 K/mm3 (140-440) 06/27/18 20:41 Lymph % (Auto) 18.6 % (13.4-35.0) 06/27/18 20:41 Geary % (Auto) 9.5 % (0.0-7.3) H 06/27/18 20:41 Eos % (Auto) 1.6 % (0.0-4.3) 06/27/18 20:41 Baso % (Auto) 0.2 % (0.0-1.8) 06/27/18 20:41 Lymph # 2.2 K/mm3 (1.2-5.4) 06/27/18 20:41 Geary # 1.1 K/mm3 (0.0-0.8) H 06/27/18 20:41 Eos # 0.2 K/mm3 (0.0-0.4) 06/27/18 20:41 Baso # 0.0 K/mm3 (0.0-0.1) 06/27/18 20:41 Seg Neutrophils % 70.1 % (40.0-70.0) H 06/27/18 20:41 Seg Neutrophils # 8.1 K/mm3 (1.8-7.7) H 06/27/18 20:41 PT 16.6 Sec. (12.2-14.9) H 06/27/18 20:41 INR 1.30 (0.87-1.13) H 06/27/18 20:41 APTT 29.7 Sec. (24.2-36.6) 06/27/18 20:41 Sodium 140 mmol/L (137-145) 06/28/18 05:39 Potassium 4.0 mmol/L (3.6-5.0) 06/28/18 05:39 Chloride 102.5 mmol/L (98-107) 06/28/18 05:39 Carbon Dioxide 28 mmol/L (22-30) 06/28/18 05:39 Anion Gap 14 mmol/L 06/28/18 05:39 BUN 22 mg/dL (7-17) H 06/28/18 05:39 Creatinine 1.6 mg/dL (0.7-1.2) H 06/28/18 05:39 Estimated GFR 39 ml/min 06/28/18 05:39 BUN/Creatinine Ratio 14 % 06/28/18 05:39 Glucose 204 mg/dL (65-100) H 06/28/18 05:39 POC Glucose 177 (70-105) H 06/28/18 15:55 Lactic Acid 0.70 mmol/L (0.7-2.0) 06/27/18 20:41 Calcium 8.0 mg/dL (8.4-10.2) L 06/28/18 05:39 Magnesium 2.00 mg/dL (1.7-2.3) 06/28/18 05:39 Total Bilirubin 0.60 mg/dL (0.1-1.2) 06/27/18 20:41 AST 16 units/L (5-40) 06/27/18 20:41 ALT 14 units/L (7-56) 06/27/18 20:41 Alkaline Phosphatase 67 units/L (35-129) 06/27/18 20:41 Total Creatine Kinase 127 units/L (30-135) 06/28/18 05:39 CK-MB (CK-2) 1.2 ng/mL (0.0-4.0) 06/28/18 05:39 CK-MB (CK-2) Rel Index 0.9 (0-4) 06/28/18 05:39 Troponin T < 0.010 ng/mL (0.00-0.029) 06/28/18 05:39 Total Protein 6.8 g/dL (6.3-8.2) 06/27/18 20:41 Albumin 3.5 g/dL (3.9-5) L 06/27/18 20:41 Albumin/Globulin Ratio 1.1 % 06/27/18 20:41 Lipase 32 units/L (13-60) 06/27/18 20:41 Blood Type B POSITIVE 06/27/18 20:47 Antibody Screen Negative 06/27/18 20:47
[2018-06-28] MEDS: MORPHINE IV PRN (20:13)
--- NOTE | 2018-06-28 22:06 | Treadmill Report ---
SINGLE ISOTOPE DUAL STUDY MYOCARDIAL PERFUSION SCAN REPORT REFERRING PHYSICIAN: Kaleb Jaramillo MD, hospitalist Seen and dictated by Joslyn Resendez MD DESCRIPTION OF PROCEDURE: The patient received 10 mCi of technetium 99m Myoview intravenously under resting conditions. Resting myocardial perfusion scan was done. Subsequently, the patient underwent a Lexiscan stress test as per the protocol. During Lexiscan stress, the patient received 28 mCi of technetium 99m Myoview intravenously. After 30-60 minutes, post-stress images were done. Computerized reconstruction of the images were done for analysis. The post-stress images revealed uniform distribution of the radiopharmaceutical in the left ventricular myocardium. Resting images were also normal. Gated study did not reveal any wall motion abnormality. The left ventricular ejection fraction was normal and was calculated to be 56%. CONCLUSIONS: 1. No perfusion abnormality of the left ventricular myocardium was demonstrated in the resting as well as stress images after the patient underwent Lexiscan stress test. 2. No wall motion abnormality. 3. Normal left ventricular ejection fraction of 56%. [facility]# [id number] [facility]/NTS
[2018-06-29] MEDS: HumaLOG SUB-Q SCH ×6 (03:11→22:44)
[2018-06-29] MEDS: ZOSYN/NS 3.375GM/50ML 3.375 GM/50 ML BAG IV SCH ×3 (05:37→21:41)
[2018-06-29] MEDS: NITRO-BID 2% TP SCH ×4 (05:41→20:13)
[2018-06-29 05:45] LABS: Creatinine,Urine 152.1 mg/dL (0.1-20.0); Protein/Creatinine Ratio,Urine 0.32
[2018-06-29 06:20] LABS: Hematocrit 30.3 % (30.3-42.9); Hemoglobin 9.8 gm/dl (10.1-14.3); Mean Corpuscular HGB Conc 32 % (30-34); Mean Corpuscular Volume 78 fl (79-97); Platelet Count 226 K/mm3 (140-440); Red Blood Count 3.88 M/mm3 (3.65-5.03); Red Cell Distribution Width 13.9 % (13.2-15.2)
[2018-06-29 06:41] LABS: Calcium 7.8 mg/dL (8.4-10.2)
[2018-06-29 06:53] LABS: Basophils % (Manual) 0 % (0.0-1.8); RBC Morphology Normal; Total Cells Counted 100
--- NOTE | 2018-06-29 10:51 | Gastroenterology Progress Note ---
<EMERALD CHENEY - Last Filed: 06/29/18 10:58> Assessment and Plan 1.hematemesis 2.mild anemia -stool occult negative -H/H 9.8/30.3-stable -continue to monitor H/H and transfuse as needed -no active signs of bleeding overnight or this am- HD stable -last EGD/colonoscopy in [place] approximately 2 years ago per pt reports with negative results except hiatal hernia (records unavailable) -etiology-possibly 2/2 esophagitis vs other -will schedule for EGD today for further evaluation given need for park interpreter anticoagulation (Eliquis currently on hold) -Keep NPO -continue PPI and supportive care -will follow 2.constipation seen on CT -continue Miralax 3.CP -improved -cardiac enzymes negative -stress test negative 4.pneumonia -on antibiotics -management per primary team 5.Afib 6.History of bipolar/schizophrenia/PTSD/psychosis Subjective Date of service: 06/29/18 Principal diagnosis: GI bleed Interval history: No acute distress. No active signs of bleeding overnight or this am. Objective - Constitutional Vitals: Temp Pulse Resp BP Pulse Ox 98.4 F 57 L 20 115/52 98 06/29/18 08:00 06/29/18 08:00 06/29/18 08:00 06/29/18 08:00 06/29/18 04:14 General appearance: no acute distress - Respiratory Respiratory: bilateral: CTA - Cardiovascular Rhythm: regular Heart Sounds: Present: S1 & S2 - Gastrointestinal General gastrointestinal: Present: soft, non-tender, non-distended, normal bowel sounds - Labs CBC & Chem 7: 06/29/18 06:03 06/29/18 06:03 Labs: Laboratory Results - last 24 hr 06/28/18 06/28/18 06/28/18 11:55 15:55 21:06 WBC RBC Hgb Hct MCV MCH MCHC RDW Plt Count [place] % (Auto) Add Manual Diff Total Counted Seg Neuts % (Manual) Band Neutrophils % Lymphocytes % (Manual) Reactive Lymphs % (Man) Monocytes % (Manual) Eosinophils % (Manual) Basophils % (Manual) Metamyelocytes % Myelocytes % Promyelocytes % Blast Cells % Nucleated RBC % Seg Neutrophils # Man Band Neutrophils # Lymphocytes # (Manual) Abs React Lymphs (Man) Monocytes # (Manual) Eosinophils # (Manual) Basophils # (Manual) Metamyelocytes # Myelocytes # Promyelocytes # Blast Cells # WBC Morphology Hypersegmented Neuts Hyposegmented Neuts Hypogranular Neuts Smudge Cells Toxic Granulation Toxic Vacuolation Dohle Bodies Pelger-Huet Anomaly Rojas Rods Platelet Estimate Clumped Platelets Plt Clumps, EDTA Large Platelets Giant Platelets Platelet Satelliting Plt Morphology Comment RBC Morphology Dimorphic RBCs Polychromasia Hypochromasia Poikilocytosis Anisocytosis Microcytosis Macrocytosis Spherocytes Pappenheimer Bodies Sickle Cells Target Cells Tear Drop Cells Ovalocytes Helmet Cells Grover-[place]uitman Bodies [place] Rings [place] Cells Bite Cells Crenated Cell Elliptocytes Acanthocytes (Spur) Rouleaux Hemoglobin C Crystals Schistocytes Malaria parasites Dale Bodies Hem Pathologist Commnt Sodium Potassium Chloride Carbon Dioxide Anion Gap BUN Creatinine Estimated GFR BUN/Creatinine Ratio Glucose POC Glucose 200 H 177 H 164 H Calcium Phosphorus Magnesium Urine Creatinine Protein/Creatinin Ratio Urine Sodium Urine Total Protein 06/29/18 06/29/18 06/29/18 05:45 06:03 06:03 WBC 6.9 RBC 3.88 Hgb 9.8 L Hct 30.3 MCV 78 L MCH 25 L MCHC 32 RDW 13.9 Plt Count 226 [place] % (Auto) Armored Car Driver Add Manual Diff Complete Total Counted 100 Seg Neuts % (Manual) 64.0 Band Neutrophils % 0 Lymphocytes % (Manual) 26.0 Reactive Lymphs % (Man) 0 Monocytes % (Manual) 8.0 H Eosinophils % (Manual) 2.0 Basophils % (Manual) 0 Metamyelocytes % 0 Myelocytes % 0 Promyelocytes % 0 Blast Cells % 0 Nucleated RBC % Not Reportable Seg Neutrophils # Man 4.4 Band Neutrophils # 0.0 Lymphocytes # (Manual) 1.8 Abs React Lymphs (Man) 0.0 Monocytes # (Manual) 0.6 Eosinophils # (Manual) 0.1 Basophils # (Manual) 0.0 Metamyelocytes # 0.0 Myelocytes # 0.0 Promyelocytes # 0.0 Blast Cells # 0.0 WBC Morphology Not Reportable Hypersegmented Neuts Not Reportable Hyposegmented Neuts Not Reportable Hypogranular Neuts Not Reportable Smudge Cells Not Reportable Toxic Granulation Not Reportable Toxic Vacuolation Not Reportable Dohle Bodies Not Reportable Pelger-Huet Anomaly Not Reportable Rojas Rods Not Reportable Platelet Estimate Appears normal Clumped Platelets Not Reportable Plt Clumps, EDTA Not Reportable Large Platelets Not Reportable Giant Platelets Not Reportable Platelet Satelliting Not Reportable Plt Morphology Comment Not Reportable RBC Morphology Normal Dimorphic RBCs Not Reportable Polychromasia Not Reportable Hypochromasia Not Reportable Poikilocytosis Not Reportable Anisocytosis Not Reportable Microcytosis Not Reportable Macrocytosis Not Reportable Spherocytes Not Reportable Pappenheimer Bodies Not Reportable Sickle Cells Not Reportable Target Cells Not Reportable Tear Drop Cells Not Reportable Ovalocytes Not Reportable Helmet Cells Not Reportable Grover-[place]uit[place] Bodies Not Reportable [place] Rings Not Reportable Dani Cells Not Reportable Bite Cells Not Reportable Crenated Cell Not Reportable Elliptocytes Not Reportable Acanthocytes (Spur) Not Reportable Rouleaux Not Reportable Hemoglobin C Crystals Not Reportable Schistocytes Not Reportable Malaria parasites Not Reportable Dale Bodies Not Reportable Hem Pathologist Commnt No Sodium 143 Potassium 3.8 Chloride 102.6 Carbon Dioxide 25 Anion Gap 19 BUN 16 Creatinine 1.5 H Estimated GFR 42 BUN/Creatinine Ratio 11 Glucose 166 H POC Glucose 162 H Calcium 7.8 L Phosphorus 3.90 Magnesium 1.70 Urine Creatinine Protein/Creatinin Ratio Urine Sodium Urine Total Protein 06/29/18 06/29/18 06/29/18 10:06 Unknown Unknown WBC RBC Hgb Hct MCV MCH MCHC RDW Plt Count [place] % (Auto) Add Manual Diff Total Counted Seg Neuts % (Manual) Band Neutrophils % Lymphocytes % (Manual) Reactive Lymphs % (Man) Monocytes % (Manual) Eosinophils % (Manual) Basophils % (Manual) Metamyelocytes % Myelocytes % Promyelocytes % Blast Cells % Nucleated RBC % Seg Neutrophils # Man Band Neutrophils # Lymphocytes # (Manual) Abs React Lymphs (Man) Monocytes # (Manual) Eosinophils # (Manual) Basophils # (Manual) Metamyelocytes # Myelocytes # Promyelocytes # Blast Cells # WBC Morphology Hypersegmented Neuts Hyposegmented Neuts Hypogranular Neuts Smudge Cells Toxic Granulation Toxic Vacuolation Dohle Bodies Pelger-Huet Anomaly Rojas Rods Platelet Estimate Clumped Platelets Plt Clumps, EDTA Large Platelets Giant Platelets Platelet Satelliting Plt Morphology Comment RBC Morphology Dimorphic RBCs Polychromasia Hypochromasia Poikilocytosis Anisocytosis Microcytosis Macrocytosis Spherocytes Pappenheimer Bodies Sickle Cells Target Cells Tear Drop Cells Ovalocytes Helmet Cells Grover-[place]uitman Bodies [place] Rings [place] Cells Bite Cells Crenated Cell Elliptocytes Acanthocytes (Spur) Rouleaux Hemoglobin C Crystals Schistocytes Malaria parasites Dale Bodies Hem Pathologist Commnt Sodium Potassium Chloride Carbon Dioxide Anion Gap BUN Creatinine Estimated GFR BUN/Creatinine Ratio Glucose POC Glucose 167 H Calcium Phosphorus Magnesium Urine Creatinine 152.1 H 154.0 H Protein/Creatinin Ratio 0.32 Urine Sodium 152 Urine Total Protein 49 H 49 H <[email or web address] R - Last Filed: 06/29/18 17:18> Objective - Constitutional Vitals: Temp Pulse Resp BP Pulse Ox 99.2 F 68 16 147/71 98 06/29/18 16:19 06/29/18 16:19 06/29/18 16:19 06/29/18 16:19 06/29/18 16:19 - Labs CBC & Chem 7: 06/29/18 06:03 06/29/18 06:03 Labs: Laboratory Results - last 24 hr 06/28/18 06/29/18 06/29/18 21:06 05:45 06:03 WBC RBC Hgb Hct MCV MCH MCHC RDW Plt Count [place] % (Auto) Add Manual Diff Total Counted Seg Neuts % (Manual) Band Neutrophils % Lymphocytes % (Manual) Reactive Lymphs % (Man) Monocytes % (Manual) Eosinophils % (Manual) Basophils % (Manual) Metamyelocytes % Myelocytes % Promyelocytes % Blast Cells % Nucleated RBC % Seg Neutrophils # Man Band Neutrophils # Lymphocytes # (Manual) Abs React Lymphs (Man) Monocytes # (Manual) Eosinophils # (Manual) Basophils # (Manual) Metamyelocytes # Myelocytes # Promyelocytes # Blast Cells # WBC Morphology Hypersegmented Neuts Hyposegmented Neuts Hypogranular Neuts Smudge Cells Toxic Granulation Toxic Vacuolation Dohle Bodies Pelger-Huet Anomaly Rojas Rods Platelet Estimate Clumped Platelets Plt Clumps, EDTA Large Platelets Giant Platelets Platelet Satelliting Plt Morphology Comment RBC Morphology Dimorphic RBCs Polychromasia Hypochromasia Poikilocytosis Anisocytosis Microcytosis Macrocytosis Spherocytes Pappenheimer Bodies Sickle Cells Target Cells Tear Drop Cells Ovalocytes Helmet Cells [place]uit[place] Bodies [place] Rings [place] Cells Bite Cells Crenated Cell Elliptocytes Acanthocytes (Spur) Rouleaux Hemoglobin C Crystals Schistocytes Malaria parasites Dale Bodies Hem Pathologist Commnt Sodium 143 Potassium 3.8 Chloride 102.6 Carbon Dioxide 25 Anion Gap 19 BUN 16 Creatinine 1.5 H Estimated GFR 42 BUN/Creatinine Ratio 11 Glucose 166 H POC Glucose 164 H 162 H Calcium 7.8 L Phosphorus 3.90 Magnesium 1.70 Urine Creatinine Protein/Creatinin Ratio Urine Sodium Urine Total Protein 06/29/18 06/29/18 06/29/18 06:03 10:06 12:05 WBC 6.9 RBC 3.88 Hgb 9.8 L Hct 30.3 MCV 78 L MCH 25 L MCHC 32 RDW 13.9 Plt Count 226 [place] % (Auto) Armored Car Driver Add Manual Diff Complete Total Counted 100 Seg Neuts % (Manual) 64.0 Band Neutrophils % 0 Lymphocytes % (Manual) 26.0 Reactive Lymphs % (Man) 0 Monocytes % (Manual) 8.0 H Eosinophils % (Manual) 2.0 Basophils % (Manual) 0 Metamyelocytes % 0 Myelocytes % 0 Promyelocytes % 0 Blast Cells % 0 Nucleated RBC % Not Reportable Seg Neutrophils # Man 4.4 Band Neutrophils # 0.0 Lymphocytes # (Manual) 1.8 Abs React Lymphs (Man) 0.0 Monocytes # (Manual) 0.6 Eosinophils # (Manual) 0.1 Basophils # (Manual) 0.0 Metamyelocytes # 0.0 Myelocytes # 0.0 Promyelocytes # 0.0 Blast Cells # 0.0 WBC Morphology Not Reportable Hypersegmented Neuts Not Reportable Hyposegmented Neuts Not Reportable Hypogranular Neuts Not Reportable Smudge Cells Not Reportable Toxic Granulation Not Reportable Toxic Vacuolation Not Reportable Dohle Bodies Not Reportable Pelger-Huet Anomaly Not Reportable Rojas Rods Not Reportable Platelet Estimate Appears normal Clumped Platelets Not Reportable Plt Clumps, EDTA Not Reportable Large Platelets Not Reportable Giant Platelets Not Reportable Platelet Satelliting Not Reportable Plt Morphology Comment Not Reportable RBC Morphology Normal Dimorphic RBCs Not Reportable Polychromasia Not Reportable Hypochromasia Not Reportable Poikilocytosis Not Reportable Anisocytosis Not Reportable Microcytosis Not Reportable Macrocytosis Not Reportable Spherocytes Not Reportable Pappenheimer Bodies Not Reportable Sickle Cells Not Reportable Target Cells Not Reportable Tear Drop Cells Not Reportable Ovalocytes Not Reportable Helmet Cells Not Reportable [place] Bodies Not Reportable [place] Rings Not Reportable Dani Cells Not Reportable Bite Cells Not Reportable Crenated Cell Not Reportable Elliptocytes Not Reportable Acanthocytes (Spur) Not Reportable Rouleaux Not Reportable Hemoglobin C Crystals Not Reportable Schistocytes Not Reportable Malaria parasites Not Reportable Dale Bodies Not Reportable Hem Pathologist Commnt No Sodium Potassium Chloride Carbon Dioxide Anion Gap BUN Creatinine Estimated GFR BUN/Creatinine Ratio Glucose POC Glucose 167 H 170 H Calcium Phosphorus Magnesium Urine Creatinine Protein/Creatinin Ratio Urine Sodium Urine Total Protein 06/29/18 06/29/18 Unknown Unknown WBC RBC Hgb Hct MCV MCH MCHC RDW Plt Count [place] % (Auto) Add Manual Diff Total Counted Seg Neuts % (Manual) Band Neutrophils % Lymphocytes % (Manual) Reactive Lymphs % (Man) Monocytes % (Manual) Eosinophils % (Manual) Basophils % (Manual) Metamyelocytes % Myelocytes % Promyelocytes % Blast Cells % Nucleated RBC % Seg Neutrophils # Man Band Neutrophils # Lymphocytes # (Manual) Abs React Lymphs (Man) Monocytes # (Manual) Eosinophils # (Manual) Basophils # (Manual) Metamyelocytes # Myelocytes # Promyelocytes # Blast Cells # WBC Morphology Hypersegmented Neuts Hyposegmented Neuts Hypogranular Neuts Smudge Cells Toxic Granulation Toxic Vacuolation Dohle Bodies Pelger-Huet Anomaly Rojas Rods Platelet Estimate Clumped Platelets Plt Clumps, EDTA Large Platelets Giant Platelets Platelet Satelliting Plt Morphology Comment RBC Morphology Dimorphic RBCs Polychromasia Hypochromasia Poikilocytosis Anisocytosis Microcytosis Macrocytosis Spherocytes Pappenheimer Bodies Sickle Cells Target Cells Tear Drop Cells Ovalocytes Helmet Cells Grover-[place]uit[place] Bodies [place] Rings [place] Cells Bite Cells Crenated Cell Elliptocytes Acanthocytes (Spur) Rouleaux Hemoglobin C Crystals Schistocytes Malaria parasites Dale Bodies Hem Pathologist Commnt Sodium Potassium Chloride Carbon Dioxide Anion Gap BUN Creatinine Estimated GFR BUN/Creatinine Ratio Glucose POC Glucose Calcium Phosphorus Magnesium Urine Creatinine 152.1 H 154.0 H Protein/Creatinin Ratio 0.32 Urine Sodium 152 Urine Total Protein 49 H 49 H
[2018-06-29] MEDS: MORPHINE IV PRN ×2 (11:25→18:52)
[2018-06-29] MEDS: PROTONIX IV SCH ×2 (11:25→21:40)
[2018-06-29] MEDS: MIRALAX 3350 PO SCH (11:26)
--- NOTE | 2018-06-29 11:39 | Progress Note ---
Assessment and Plan Chronic Kidney Disease, stage 3 secondary to DM -Serum creatinine 1.5 today and was 1.6 yesterday. Baseline serum creatinine unknown but patient states she has known CKD stage 3 -Ct of Abdomen and Pelvis- right renal calculi without obstruction and no hydronephrosis -Urine lytes reviewed -Continue on NS@ 75 ml/hr -Avoid nephrotoxic agents -Monitor I/O's -Obtain daily weights -Monitor renal function Hematemesis: -EGD once cleared by cardiology per GI -NPO status -Eliquis on hold -On Protonix -GI onboard Constipation: -CT scan showed large volume of stool -Placed on Miralax Chest Pain -S/P stress test yesterday- normal -LVEF- 55% Pneumonia: -Revealed on Ct scan -On IV Rocephin Mental Disorder: -Psych consulted Diabetes Mellitus: -On insulin -As per primary Subjective Date of service: 06/29/18 Principal diagnosis: GI bleed Interval history: Patient seen lying in bed. No family at bedside. Objective - Vital Signs Vital signs: Vital Signs - 12hr 06/29/18 06/29/18 06/29/18 04:14 06:00 08:00 Temperature 98.3 F 98.4 F Pulse Rate 74 61 57 L Respiratory 18 20 Rate Blood Pressure 136/59 Blood Pressure 115/52 [Left] O2 Sat by Pulse 98 Oximetry 06/29/18 11:25 Temperature Pulse Rate Respiratory 20 Rate Blood Pressure Blood Pressure [Left] O2 Sat by Pulse Oximetry - General Appearance General appearance: well-developed, appears stated age, obese, fatigue EENT: ATNC Neck: no JVD, supple Respiratory: Present: Decreased Breath Sounds Cardiology: regular, S1S2 Gastrointestinal: normoactive bowel sounds Integumentary: warm and dry Neurologic: alert and oriented x3 Musculoskeletal: other (No edema) - Lab 06/29/18 06:03 06/29/18 06:03 Most recent lab results Calcium 7.8 mg/dL (8.4-10.2) L 06/29/18 06:03 Phosphorus 3.90 mg/dL (2.5-4.5) 06/29/18 06:03 Magnesium 1.70 mg/dL (1.7-2.3) 06/29/18 06:03 Urine Creatinine 154.0 mg/dL (0.1-20.0) H 06/29/18 Unknown Urine Sodium 152 mmol/L 06/29/18 Unknown Urine Total Protein 49 mg/dL (5-11.8) H 06/29/18 Unknown Medications & Allergies - Medications Allergies/Adverse Reactions: Allergies amitriptyline Allergy (Verified 06/27/18 18:03) Unknown aripiprazole [From [employer]] Allergy (Verified 06/27/18 18:03) Unknown Home Medications: Home Medications Medication Instructions Recorded Confirmed Last Taken Type Calcium 06/28/18 06/25/18 History Eliquis PO BID 06/28/18 06/26/18 History Magnesium 06/28/18 Unknown History Quetiapine Fumarate [Seroquel] 100 mg PO QHS 06/28/18 06/28/18 06/26/18 History 100 MG Vitamin D (Nf) 06/28/18 06/25/18 History Vortioxetine Hydrobromide 20 mg PO HS 06/28/18 06/28/18 06/26/18 History [Brintellix] 20 MG Active Medications: Generic Name Dose Route Start Last Admin Trade Name Freq PRN Reason Stop Dose Admin Acetaminophen 650 mg 06/27/18 22:25 Tylenol PO Q4H PRN Headache Albuterol 2.5 mg 06/27/18 22:36 Proventil IH Q6HRT PRN Shortness Of Breath Dextrose 50 ml 06/27/18 22:39 D50w (25gm) Syringe IV PRN PRN Hypoglycemia Sodium Chloride 1,000 mls @ 75 mls/hr 06/27/18 23:00 Nacl 0.9% 1000 Ml IV DIRECT DORYS Piperacillin Sod/Tazobactam Sod 3.375 gm in 50 mls @ 100 mls/hr 06/28/18 14:00 06/29/18 05:37 Zosyn/Ns 3.375gm/50ml IV 100 mls/hr Q8HR DORYS Administration Protocol Insulin Human Lispro 0 unit 06/27/18 23:00 06/29/18 05:43 Humalog SUB-Q Not Given Q4HR DORYS Protocol Morphine Sulfate 2 mg 06/27/18 22:24 06/29/18 11:25 Morphine IV 2 mg Q3H PRN Administration Pain, Moderate (4-6) Nitroglycerin 0.4 mg 06/27/18 22:23 Nitrostat SL .Q5MIN PRN Chest Pain Nitroglycerin 0.5 inch 06/28/18 06:00 06/29/18 05:41 Nitro-Bid 2% TP Not Given [facility] Protocol Ondansetron HCl 4 mg 06/27/18 22:24 Zofran IV Q8H PRN Nausea And Vomiting Pantoprazole Sodium 40 mg 06/28/18 10:00 06/29/18 11:25 Protonix IV 40 mg BID DORYS Administration Polyethylene Glycol 17 gm 06/28/18 12:00 06/29/18 11:26 Miralax 3350 PO Not Given QDAY DORYS Quetiapine Fumarate 100 mg 06/28/18 22:36 06/28/18 23:25 Seroquel PO 100 mg QHS DORYS Administration
[2018-06-29] MEDS ORDERED: WATER FOR IRRIG STERILE IR ONE (16:02)
[2018-06-29] MEDS ORDERED: DIPRIVAN 10 MG/ML IV ONE (17:00)
[2018-06-29] MEDS ORDERED: NACL 0.9% 1000 ML 1,000 ML IV SCH (17:00)
--- NOTE | 2018-06-29 17:06 | Progress Note ---
Assessment and Plan Assessment and plan: --Hematemesis; GI evaluated the patient Patient is hemodynamically stable Scheduled for EGD today,cont protonix --Atypical chest pain; probably noncardiac Stress test, negative for reversible ischemia Cardiac chest pain probably secondary to GERD --GERD; Protonix --Bilateral pneumonia; continue empiric antibiotics, follow cultures Supportive care --Acute kidney injury; vasomotor nephropathy, mild improvement avoid nephrotoxins, IV hydration, nephrology following --History of bipolar/schizophrenia/PTSD/psychosis; Patient is sent from [facility], psych evaluation Possible discharge back to [facility] when medically stable --Type 2 diabetes mellitus; accu check sliding scale coverage ADA diet and insulin as needed, Check hemoglobin A1c --DVT prophylaxis; SCD Consults and recommendations noted Closely monitor patient and adjust management as needed History Interval history: Patient seen and examined this morning medical records reviewed Patient feels better no new episodes of hematemesis Schedule for EGD today Patient is not in acute distress Vital signs noted Hospitalist Physical - Constitutional Vitals: Temp Pulse Resp BP Pulse Ox 99.2 F 68 16 147/71 98 06/29/18 16:19 06/29/18 16:19 06/29/18 16:19 06/29/18 16:19 06/29/18 16:19 General appearance: Present: no acute distress, well-nourished, obese (morbidly obese) - EENT Eyes: Present: PERRL, EOM intact - Neck Neck: Present: supple, normal ROM - Respiratory Respiratory effort: normal Respiratory: bilateral: diminished, negative: rales, rhonchi, wheezing - Cardiovascular Rhythm: regular Heart Sounds: Present: S1 & S2 - Extremities Extremities: no ischemia, No edema - Abdominal General gastrointestinal: soft, non-tender, non-distended, normal bowel sounds - Integumentary Integumentary: Present: clear, warm - Psychiatric Psychiatric: appropriate mood/affect, cooperative - Neurologic Neurologic: CNII-XII intact, moves all extremities Results - Labs CBC & Chem 7: 06/29/18 06:03 06/29/18 06:03 Labs: Laboratory Last Values WBC 6.9 K/mm3 (4.5-11.0) 06/29/18 06:03 RBC 3.88 M/mm3 (3.65-5.03) 06/29/18 06:03 Hgb 9.8 gm/dl (10.1-14.3) L 06/29/18 06:03 Hct 30.3 % (30.3-42.9) 06/29/18 06:03 MCV 78 fl (79-97) L 06/29/18 06:03 MCH 25 pg (28-32) L 06/29/18 06:03 MCHC 32 % (30-34) 06/29/18 06:03 RDW 13.9 % (13.2-15.2) 06/29/18 06:03 Plt Count 226 K/mm3 (140-440) 06/29/18 06:03 Lymph % (Auto) 18.6 % (13.4-35.0) 06/27/18 20:41 Ward % (Auto) Academic Associate 06/29/18 06:03 Eos % (Auto) 1.6 % (0.0-4.3) 06/27/18 20:41 Baso % (Auto) 0.2 % (0.0-1.8) 06/27/18 20:41 Lymph # 2.2 K/mm3 (1.2-5.4) 06/27/18 20:41 Ward # 1.1 K/mm3 (0.0-0.8) H 06/27/18 20:41 Eos # 0.2 K/mm3 (0.0-0.4) 06/27/18 20:41 Baso # 0.0 K/mm3 (0.0-0.1) 06/27/18 20:41 Add Manual Diff Complete 06/29/18 06:03 Total Counted 100 06/29/18 06:03 Seg Neutrophils % 70.1 % (40.0-70.0) H 06/27/18 20:41 Seg Neuts % (Manual) 64.0 % (40.0-70.0) 06/29/18 06:03 Band Neutrophils % 0 % 06/29/18 06:03 Lymphocytes % (Manual) 26.0 % (13.4-35.0) 06/29/18 06:03 Reactive Lymphs % (Man) 0 % 06/29/18 06:03 Monocytes % (Manual) 8.0 % (0.0-7.3) H 06/29/18 06:03 Eosinophils % (Manual) 2.0 % (0.0-4.3) 06/29/18 06:03 Basophils % (Manual) 0 % (0.0-1.8) 06/29/18 06:03 Metamyelocytes % 0 % 06/29/18 06:03 Myelocytes % 0 % 06/29/18 06:03 Promyelocytes % 0 % 06/29/18 06:03 Blast Cells % 0 % 06/29/18 06:03 Nucleated RBC % Not Reportable 06/29/18 06:03 Seg Neutrophils # 8.1 K/mm3 (1.8-7.7) H 06/27/18 20:41 Seg Neutrophils # Man 4.4 K/mm3 (1.8-7.7) 06/29/18 06:03 Band Neutrophils # 0.0 K/mm3 06/29/18 06:03 Lymphocytes # (Manual) 1.8 K/mm3 (1.2-5.4) 06/29/18 06:03 Abs React Lymphs (Man) 0.0 K/mm3 06/29/18 06:03 Monocytes # (Manual) 0.6 K/mm3 (0.0-0.8) 06/29/18 06:03 Eosinophils # (Manual) 0.1 K/mm3 (0.0-0.4) 06/29/18 06:03 Basophils # (Manual) 0.0 K/mm3 (0.0-0.1) 06/29/18 06:03 Metamyelocytes # 0.0 K/mm3 06/29/18 06:03 Myelocytes # 0.0 K/mm3 06/29/18 06:03 Promyelocytes # 0.0 K/mm3 06/29/18 06:03 Blast Cells # 0.0 K/mm3 06/29/18 06:03 WBC Morphology Not Reportable 06/29/18 06:03 Hypersegmented Neuts Not Reportable 06/29/18 06:03 Hyposegmented Neuts Not Reportable 06/29/18 06:03 Hypogranular Neuts Not Reportable 06/29/18 06:03 Smudge Cells Not Reportable 06/29/18 06:03 Toxic Granulation Not Reportable 06/29/18 06:03 Toxic Vacuolation Not Reportable 06/29/18 06:03 Dohle Bodies Not Reportable 06/29/18 06:03 Pelger-Huet Anomaly Not Reportable 06/29/18 06:03 Rojas Rods Not Reportable 06/29/18 06:03 Platelet Estimate Appears normal 06/29/18 06:03 Clumped Platelets Not Reportable 06/29/18 06:03 Plt Clumps, EDTA Not Reportable 06/29/18 06:03 Large Platelets Not Reportable 06/29/18 06:03 Giant Platelets Not Reportable 06/29/18 06:03 Platelet Satelliting Not Reportable 06/29/18 06:03 Plt Morphology Comment Not Reportable 06/29/18 06:03 RBC Morphology Normal 06/29/18 06:03 Dimorphic RBCs Not Reportable 06/29/18 06:03 Polychromasia Not Reportable 06/29/18 06:03 Hypochromasia Not Reportable 06/29/18 06:03 Poikilocytosis Not Reportable 06/29/18 06:03 Anisocytosis Not Reportable 06/29/18 06:03 Microcytosis Not Reportable 06/29/18 06:03 Macrocytosis Not Reportable 06/29/18 06:03 Spherocytes Not Reportable 06/29/18 06:03 Pappenheimer Bodies Not Reportable 06/29/18 06:03 Sickle Cells Not Reportable 06/29/18 06:03 Target Cells Not Reportable 06/29/18 06:03 Tear Drop Cells Not Reportable 06/29/18 06:03 Ovalocytes Not Reportable 06/29/18 06:03 Helmet Cells Not Reportable 06/29/18 06:03 [place] Bodies Not Reportable 06/29/18 06:03 [place] Rings Not Reportable 06/29/18 06:03 [place] Cells Not Reportable 06/29/18 06:03 Bite Cells Not Reportable 06/29/18 06:03 Crenated Cell Not Reportable 06/29/18 06:03 Elliptocytes Not Reportable 06/29/18 06:03 Acanthocytes (Spur) Not Reportable 06/29/18 06:03 Rouleaux Not Reportable 06/29/18 06:03 Hemoglobin C Crystals Not Reportable 06/29/18 06:03 Schistocytes Not Reportable 06/29/18 06:03 Malaria parasites Not Reportable 06/29/18 06:03 [place] Bodies Not Reportable 06/29/18 06:03 Hem Pathologist Commnt No 06/29/18 06:03 PT 16.6 Sec. (12.2-14.9) H 06/27/18 20:41 INR 1.30 (0.87-1.13) H 06/27/18 20:41 APTT 29.7 Sec. (24.2-36.6) 06/27/18 20:41 Sodium 143 mmol/L (137-145) 06/29/18 06:03 Potassium 3.8 mmol/L (3.6-5.0) 06/29/18 06:03 Chloride 102.6 mmol/L (98-107) 06/29/18 06:03 Carbon Dioxide 25 mmol/L (22-30) 06/29/18 06:03 Anion Gap 19 mmol/L 06/29/18 06:03 BUN 16 mg/dL (7-17) 06/29/18 06:03 Creatinine 1.5 mg/dL (0.7-1.2) H 06/29/18 06:03 Estimated GFR 42 ml/min 06/29/18 06:03 BUN/Creatinine Ratio 11 % 06/29/18 06:03 Glucose 166 mg/dL (65-100) H 06/29/18 06:03 POC Glucose 170 (70-105) H 06/29/18 12:05 Lactic Acid 0.70 mmol/L (0.7-2.0) 06/27/18 20:41 Calcium 7.8 mg/dL (8.4-10.2) L 06/29/18 06:03 Phosphorus 3.90 mg/dL (2.5-4.5) 06/29/18 06:03 Magnesium 1.70 mg/dL (1.7-2.3) 06/29/18 06:03 Total Bilirubin 0.60 mg/dL (0.1-1.2) 06/27/18 20:41 AST 16 units/L (5-40) 06/27/18 20:41 ALT 14 units/L (7-56) 06/27/18 20:41 Alkaline Phosphatase 67 units/L (35-129) 06/27/18 20:41 Total Creatine Kinase 127 units/L (30-135) 06/28/18 05:39 CK-MB (CK-2) 1.2 ng/mL (0.0-4.0) 06/28/18 05:39 CK-MB (CK-2) Rel Index 0.9 (0-4) 06/28/18 05:39 Troponin T < 0.010 ng/mL (0.00-0.029) 06/28/18 05:39 Total Protein 6.8 g/dL (6.3-8.2) 06/27/18 20:41 Albumin 3.5 g/dL (3.9-5) L 06/27/18 20:41 Albumin/Globulin Ratio 1.1 % 06/27/18 20:41 Lipase 32 units/L (13-60) 06/27/18 20:41 Urine Creatinine 154.0 mg/dL (0.1-20.0) H 06/29/18 Unknown Protein/Creatinin Ratio 0.32 06/29/18 Unknown Urine Sodium 152 mmol/L 06/29/18 Unknown Urine Total Protein 49 mg/dL (5-11.8) H 06/29/18 Unknown Blood Type B POSITIVE 06/27/18 20:47 Antibody Screen Negative 06/27/18 20:47
--- NOTE | 2018-06-29 17:21 | Post Operative Note ---
Pre-op diagnosis: Hematemesis Post-op diagnosis: other (Mild distal esophagitis) Findings: 1. Distal 2 cm of esophagus with patchy erythema, c/w mild nonerosive esophagitis. 2. Otherwise normal EGD with no evidence of bleeding source. Procedure: EGD Anesthesia: MAC Surgeon: FIONA ASHFORD Estimated blood loss: none Pathology: none Condition: stable Disposition: floor (1. Advance diet, and keep on daily PPI. 2. Outpatient evaluation of anemia, as chronicity unknown. Okay to D/C to home, and will sign off.)
--- NOTE | 2018-06-29 18:15 | Operative Report ---
PROCEDURE: Upper endoscopy. PREOPERATIVE DIAGNOSIS: Hematemesis. POSTOPERATIVE DIAGNOSIS: Mild nonerosive esophagitis. SEDATION: MAC by Anesthesia. HISTORY: The patient is a 63-year-old woman who is on Eliquis for atrial fibrillation. She was admitted with history of hematemesis, but no melena. She has a hemoglobin that is 9.8 with an MCV of 78. Hemoglobin was stable during admission. Procedure, indications, risks, and benefits were explained and consent was obtained. DESCRIPTION OF PROCEDURE: The patient was placed in left lateral decubitus position and sedated. Smule video upper endoscope was passed through the mouth and oropharynx into the descending duodenum. Scope was then gradually withdrawn with close inspection of the mucosa. FINDINGS: 1. Normal appearing esophagus except for the distal 2 cm, which showed mild patchy erythema consistent with nonerosive esophagitis. Z-line is otherwise normal. 2. Normal gastric antrum, fundus, body and cardia. 3. Normal appearing duodenal bulb and duodenum. The patient tolerated the procedure well without immediate complications. IMPRESSION: 1. Nonerosive esophagitis. 2. Otherwise, normal upper endoscopy. PLAN: 1. Chronic proton pump inhibitor. 2. Advance diet and okay to discharge home. 3. Further evaluation of anemia as an outpatient. The patient had Hemoccult negative stool on admission, and chronicity of anemia is unknown. This can be further evaluated as an outpatient. JOB# [id number] HRC/NTS
[2018-06-30] MEDS: HumaLOG SUB-Q SCH ×3 (03:13→10:00)
[2018-06-30] MEDS: ZOSYN/NS 3.375GM/50ML 3.375 GM/50 ML BAG IV SCH (05:29)
[2018-06-30] MEDS: NITRO-BID 2% TP SCH ×2 (06:32→09:10)
[2018-06-30 07:19] LABS: Calcium 7.9 mg/dL (8.4-10.2)
[2018-06-30 08:32] VITALS: BP 121/51
[2018-06-30] MEDS: PROTONIX IV SCH (09:12)
--- NOTE | 2018-06-30 09:12 | Discharge Summary ---
Providers - Providers Date of Admission: 06/27/18 21:49 Date of discharge: 06/30/18 Attending physician: ROBIN FERGUSON 06/27/18 20:23 Consult to Physician [CONS] Urgent Comment: Dr. Corea spoke with Dr. Mcnamara @ [phone] Consulting Provider: CICI RAMIREZ Physician Instructions: Reason For Exam: gi bleed 06/28/18 06:00 Consult to Physician [CONS] Routine Comment: Consulting Provider: MAGDIEL OMER Physician Instructions: Reason For Exam: CKD 06/28/18 18:08 psychiatry consult [Consult to Mental Health] [CONS] Routine Reason For Exam: Bipolar/schizophrenia Place consult to:: personal development mentor Notified:: scottie Phone number called:: [phone] Was contact made?: Yes If yes, spoke with:: ho Time called:: 08:46 Primary care physician: FRAN MCALLISTER Hospitalization Reason for admission: hematemesis/chest pain Condition: Good Pertinent studies: CT abdomen and pelvis; patchy groundglass airspace opacities visualized and the portions of the lung basis could be infectious, Large-volume stools constipation[resolved] Chest x-ray; no acute abnormalities noted Exercise stress test; negative reversible ischemia, EF 56% Procedures: EGD; distended 2 cm of faintness and with patchy erythema mild nonerosive esophagitis, normal duodenal no bleeding source Hospital course: 63 y/o female pt with PMH of Afib (on Eliquis), , DM, obesity, GERD, bipolar, schizophrenia, and PTSD was admitted through ED with c/o vomiting blood , patient was evaluated by GI , underwent EGD , distal esophagitis , advised protonix, no source of bleeding , may resume eliquis., Patient also had chest pain, underwent stress test, negative for reversible ischemia, workup revealed bilateral basal infiltrates/atelectasis, Received empiric antibiotics with improvement of symptoms, discharge him on antibiotics, Patient has multiple psych issues, is a resident of [facility], advised to follow psych Patient is comfortable in no new complaints Vital signs stable, Physical examination unremarkable Stable to discharge back to [facility]. Discharge diagnosis; --Hematemesis; GI evaluated the patient EGD mild distal esophagitis, advised Protonix --Atypical chest pain; probably noncardiac Stress test, negative, chest pain probably secondary to GERD --GERD; Protonix --Bilateral pneumonia; continue empiric antibiotics, DC on oral antibiotics --Acute kidney injury; vasomotor nephropathy, mild improvement avoid nephrotoxins, follow nephrology on discharge --History of bipolar/schizophrenia/PTSD/psychosis; Patient will return to [facility], psych follow-up --Type 2 diabetes mellitus; accu check sliding scale coverage ADA diet and insulin as needed, Cardiology and GI cleared for discharge Patient is stable at discharge and transfer back to [facility] Disposition: DC/TX-[id number] ANOTHER TYPE HLTHCARE Time spent for discharge: 32 min Core Measure Documentation - Palliative Care Palliative Care/ Comfort Measures: Not Applicable - Core Measures Any of the following diagnoses?: none Exam - Constitutional Vitals: Temp Pulse Resp BP Pulse Ox 98.2 F 61 18 121/51 99 06/30/18 08:27 06/30/18 08:31 06/30/18 08:31 06/30/18 08:31 06/30/18 08:31 General appearance: Present: no acute distress, well-nourished - EENT Eyes: Present: PERRL, EOM intact - Neck Neck: Present: supple, normal ROM - Respiratory Respiratory effort: normal Respiratory: negative: rales, rhonchi, wheezing - Cardiovascular Rhythm: regular Heart Sounds: Present: S1 & S2 - Extremities Extremities: no ischemia, No edema - Abdominal General gastrointestinal: Present: soft, non-tender, non-distended, normal bowel sounds - Integumentary Integumentary: Present: clear, warm - Musculoskeletal Musculoskeletal: strength equal bilaterally - Psychiatric Psychiatric: appropriate mood/affect, cooperative - Neurologic Neurologic: moves all extremities Plan Activity: advance as tolerated, fall precautions Diet: regular Additional Instructions: stop Eliquis if you notice bleeding and contact MD. Continue all home medications as before. If you Notice any more bleeding contact M.D.or go to emergency room Follow up with: FRAN MCALLISTER MD [Primary Care Provider] - 3-5 Days FIONA ASHFORD MD [Staff Physician] - 7 Days MAGDIEL OMER MD [Staff Physician] - 7 Days Prescriptions: Azithromycin [Zithromax Z-LUZ] 0 mg PO DAILY #1 tab Benzonatate [Tessalon Perles] 100 mg PO Q8HR #15 capsule Pantoprazole [Protonix TAB] 40 mg PO BID #30 tablet
[2018-06-30] MEDS: MIRALAX 3350 PO SCH (10:00)
--- NOTE | 2018-06-30 12:40 | Progress Note ---
Assessment and Plan Chronic Kidney Disease Stage 3 secondary to Diabetic Nephropathy: -Renal function reviewed, SCr level was 1.5 today, yesterday's SCr level was 1.5 -CT Abdomen and Pelvis w/o contrast showed right renal calculi without obstruction and no hydronephrosis -D/C IV fluids -Pt with discharge orders today, pt will need to f/u with our nephrology practice within 1 week of discharge -Avoid nephrotoxic agents -Renal plan d/w Dr Robles Hematemesis: -EGD on 06/29/18 showed Distal 2 cm of esophagus with patchy erythema, c/w mild nonerosive esophagitis, otherwise normal EGD with no evidence of bleeding source per EGD report -Eliquis on hold -On Protonix -As per GI Constipation: -CT scan showed large volume of stool -On Miralax Atypical Chest Pain -S/p stress test -> negative -LVEF- 55% Bilateral Pneumonia: -On IV Rocephin Bipolar disorder: Schizophrenia: PTSD: -Psych evaluated pt -Pt will be d/c back to [facility] Diabetes Mellitus Type 2 non-insulin dependent: -On insulin -As per primary Subjective Date of service: 06/30/18 Principal diagnosis: GI bleed Interval history: Pt seen sitting up on the side of the bed, states she has some shortness of breath. Pt states she usually has shortness of breath all the time from her COPD and asthma. Pt reports decreased appetite. No family at bedside Objective - Vital Signs Vital signs: Vital Signs - 12hr 06/30/18 06/30/18 06/30/18 04:17 06:00 08:27 Temperature 98.2 F 98.2 F Pulse Rate 58 L 70 Respiratory 18 Rate Blood Pressure 137/44 O2 Sat by Pulse 97 Oximetry 06/30/18 06/30/18 08:31 10:00 Temperature Pulse Rate 61 Respiratory 18 20 Rate Blood Pressure 121/51 O2 Sat by Pulse 99 Oximetry - General Appearance General appearance: well-developed EENT: ATNC Neck: no JVD Respiratory: Present: Decreased Breath Sounds Cardiology: regular, S1S2 Gastrointestinal: normoactive bowel sounds, no tenderness Integumentary: warm and dry Neurologic: alert and oriented x3 Musculoskeletal: other (no edema to BLE) Psychiatric: cooperative - Lab 06/29/18 06:03 06/30/18 05:35 Most recent lab results Calcium 7.9 mg/dL (8.4-10.2) L 06/30/18 05:35 Phosphorus 3.90 mg/dL (2.5-4.5) 06/29/18 06:03 Magnesium 1.70 mg/dL (1.7-2.3) 06/29/18 06:03 Urine Creatinine 154.0 mg/dL (0.1-20.0) H 06/29/18 Unknown Urine Sodium 152 mmol/L 06/29/18 Unknown Urine Total Protein 49 mg/dL (5-11.8) H 06/29/18 Unknown Medications & Allergies - Medications Allergies/Adverse Reactions: Allergies amitriptyline Allergy (Verified 06/27/18 18:03) Unknown aripiprazole [From [facility]] Allergy (Verified 06/27/18 18:03) Unknown Home Medications: Home Medications Medication Instructions Recorded Confirmed Last Taken Type Calcium 06/28/18 06/25/18 History Eliquis PO BID 06/28/18 06/26/18 History Magnesium 06/28/18 Unknown History Quetiapine Fumarate [Seroquel] 100 mg PO QHS 06/28/18 06/28/18 06/26/18 History 100 MG Vitamin D (Nf) 06/28/18 06/25/18 History Vortioxetine Hydrobromide 20 mg PO HS 06/28/18 06/28/18 06/26/18 History [Brintellix] 20 MG Azithromycin [Zithromax Z-LUZ] 0 mg PO DAILY #1 tab 06/30/18 Unknown Rx Benzonatate [Tessalon Perles] 100 mg PO Q8HR #15 capsule 06/30/18 Unknown Rx Pantoprazole [Protonix TAB] 40 mg PO BID #30 tablet 06/30/18 Unknown Rx Active Medications: Generic Name Dose Route Start Last Admin Trade Name Freq PRN Reason Stop Dose Admin Acetaminophen 650 mg 06/27/18 22:25 Tylenol PO Q4H PRN Headache Albuterol 2.5 mg 06/27/18 22:36 Proventil IH Q6HRT PRN Shortness Of Breath Dextrose 50 ml 06/27/18 22:39 D50w (25gm) Syringe IV PRN PRN Hypoglycemia Sodium Chloride 1,000 mls @ 75 mls/hr 06/27/18 23:00 06/29/18 21:41 Nacl 0.9% 1000 Ml IV 75 mls/hr DIRECT DORYS Administration Piperacillin Sod/Tazobactam Sod 3.375 gm in 50 mls @ 100 mls/hr 06/28/18 14:00 06/30/18 05:29 Zosyn/Ns 3.375gm/50ml IV 100 mls/hr Q8HR DORYS Administration Protocol Sodium Chloride 1,000 mls @ 50 mls/hr 06/29/18 17:00 06/29/18 16:42 Nacl 0.9% 1000 Ml IV 50 mls/hr DIRECT DORYS Administration Insulin Human Lispro 0 unit 06/27/18 23:00 06/30/18 10:00 Humalog SUB-Q Not Given Q4HR [facility] Protocol Morphine Sulfate 2 mg 06/27/18 22:24 06/29/18 18:52 Morphine IV 2 mg Q3H PRN Administration Pain, Moderate (4-6) Nitroglycerin 0.4 mg 06/27/18 22:23 Nitrostat SL .Q5MIN PRN Chest Pain Nitroglycerin 0.5 inch 06/28/18 06:00 06/30/18 09:10 Nitro-Bid 2% TP Not Given QIDNTG [facility] Protocol Ondansetron HCl 4 mg 06/27/18 22:24 Zofran IV Q8H PRN Nausea And Vomiting Pantoprazole Sodium 40 mg 06/30/18 22:00 Protonix PO BID [facility] Polyethylene Glycol 17 gm 06/28/18 12:00 06/30/18 10:00 Miralax 3350 PO Not Given QDAY DORYS Quetiapine Fumarate 100 mg 06/28/18 22:36 06/29/18 21:40 Seroquel PO 100 mg QHS DORYS Administration
[2018-06-30] MEDS ORDERED: PROTONIX PO SCH (22:00)
== END 2018-06-30 13:15 | DRG 377 ==
LOC: ED 17:48 → 4A 21:49
PROVIDERS: ADMIT Internal Medicine; ATTEND Internal Medicine
PROC: 0DJ08ZZ Inspection of Upper Intestinal Tract, Via Natural or Artificial Opening Endoscopic (ICD-10-PCS; principal; 2018-06-29)
DX: K92.0 Hematemesis (principal); J18.9 Pneumonia, unspecified organism; N17.0 Acute kidney failure with tubular necrosis; E83.42 Hypomagnesemia; E11.22 Type 2 diabetes mellitus with diabetic chronic kidney disease; N18.3 Chronic kidney disease, stage 3 (moderate); F31.9 Bipolar disorder, unspecified; I48.91 Unspecified atrial fibrillation; D64.9 Anemia, unspecified; K21.0 Gastro-esophageal reflux disease with esophagitis; J45.909 Unspecified asthma, uncomplicated; F20.9 Schizophrenia, unspecified; Z88.8 Allergy status to other drugs, medicaments and biological substances; Z79.01 Long term (current) use of anticoagulants; Z68.38 Body mass index [BMI] 38.0-38.9, adult; Z79.84 Long term (current) use of oral hypoglycemic drugs
CPT/HCPCS: 36415; 71046; 74176; 78452; 80048; 80053; 82140; 82271; 82550; 82553; 82570; 82962; 83036; 83690; 83735; 84100; 84156; 84300; 84484; 85007; 85014; 85018; 85025; 85610; 85730; 86850; 86900; 86901; 87040; 93005; 93010; 93017; 94760; 99281; G0378; A9502; C9113; J0696; J2270; J2405; J2543; J2704; J2785; J3475; J7030

== ENCOUNTER 2018-07-31 19:53 | Emergency (ER) | payer MEDICARE | END 2018-07-31 23:20 | disposition left against medical advice (07) | LOC: ED 19:53 ==

== ENCOUNTER 2018-08-03 12:02 | Outpatient (CLI) | payer MEDICARE ==
[2018-08-03 12:41] LABS: Bilirubin,Urine NEG (Negative); Blood,Urine NEG (Negative); Color,Urine Yellow (Yellow); Mucus,Urine FEW /HPF; Protein,Urine <15 mg/dL mg/dL (Negative); RBC,Urine < 1.0 /HPF (0.0-6.0); Urobilinogen,Urine < 2.0 mg/dL (<2.0)
[2018-08-03 12:47] LABS: Albumin 4.4 g/dL (3.9-5); Calcium 8.7 mg/dL (8.4-10.2)
== END 2018-08-03 12:03 | disposition home or self-care (01) ==
LOC: LAB 12:02
PROVIDERS: ATTEND Internal Medicine Nephrology
DX: I12.0 Hypertensive chronic kidney disease with stage 5 chronic kidney disease or end stage renal disease (principal); N18.6 End stage renal disease; J44.9 Chronic obstructive pulmonary disease, unspecified; Z90.710 Acquired absence of both cervix and uterus; Z87.891 Personal history of nicotine dependence
CPT/HCPCS: 36415; 80048; 81001; 82040; 84100

== ENCOUNTER 2018-08-18 12:52 | Emergency (ER) | payer MEDICARE ==
[2018-08-18 13:06] VITALS: BP 130/62
--- NOTE | 2018-08-18 14:11 | Emergency Department Report ---
Blank Doc - Documentation Documentation: Pain left heel, left wrist and left wrist raiading to left fa. No PCP. Has pod iatrist who takes care of bone spur. Ultram not working O lt wrist splint on. NL pulses A/P arthralgia multiple sites- chronic Pt screened by medical provider
[2018-08-18] MEDS ORDERED: TYLENOL #3 PO ONE (15:30)
[2018-08-18] MEDS ORDERED: TORADOL IM ONE (15:30)
--- NOTE | 2018-08-18 15:38 | Emergency Department Report ---
ED Recheck HPI - General Chief Complaint: Pain General Stated Complaint: L ARM,WRIST,ANKLE PAIN Time Seen by Provider: 08/18/18 14:08 Source: patient Mode of arrival: Ambulatory Limitations: No Limitations - History of Present Illness Initial Comments: Patient is a 63-year-old female who is into the ER numerous times in the past with her acute and chronic pain. She states that she's having pain of her wrist and her heel. She states that she has a cyst on her nerve in her wrist and that she has a heel spur. She is followed by a orthopedic doctor and a blocker polishing. She does not see a chronic pain doctor. Patient has full range of motion. There is no trauma. Vital signs are stable. She states that her home medications just aren't working. She states she is on tramadol once a day. PMH DM COPD GERD ANEMIA HYPOTHYROID AFIB HPLD OBESE HPLD Has no pcp - Related Data Home Medications Medication Instructions Recorded Confirmed Last Taken Calcium 06/28/18 06/25/18 Eliquis PO BID 06/28/18 06/26/18 Magnesium 06/28/18 Unknown Quetiapine Fumarate [Seroquel] 100 mg PO QHS 06/28/18 06/28/18 06/26/18 100 MG Vitamin D (Nf) 06/28/18 06/25/18 Previous Rx's Medication Instructions Recorded Last Taken Type Pantoprazole [Protonix TAB] 40 mg PO BID #30 tablet 06/30/18 Unknown Rx predniSONE [Deltasone] 20 mg PO DAILY #5 tablet 08/18/18 Unknown Rx Allergies Allergy/AdvReac Type Severity Reaction Status Date / Time amitriptyline Allergy Seizure Verified 07/31/18 20:16 aripiprazole [From Abilify] Allergy Unknown Verified 06/27/18 18:03 nortriptyline Allergy Itching Verified 07/31/18 20:16 Sulfa (Sulfonamide Allergy Unknown Verified 07/31/18 20:16 Antibiotics) ED Review of Systems ROS: Stated complaint: L ARM,WRIST,ANKLE PAIN Other details as noted in HPI Comment: All other systems reviewed and negative Constitutional: denies: chills Eyes: denies: eye pain ENT: denies: throat pain Respiratory: denies: cough Cardiovascular: denies: palpitations Endocrine: denies: flushing Gastrointestinal: denies: nausea Genitourinary: denies: dysuria Musculoskeletal: as per HPI Skin: denies: lesions Neurological: denies: weakness Psychiatric: denies: depression Hematological/Lymphatic: denies: easy bleeding ED Past Medical Hx - Past Medical History Hx Hypertension: Yes ("no longer on bp medicine") Hx Congestive Heart Failure: No Hx Diabetes: Yes Hx Seizures: Yes (2011, CAUSED BY AMYTRIPTYLLINE) Hx Psychiatric Treatment: Yes (Bi Polar, Schizophrenia, PTSD, Psychosis) Hx Asthma: Yes Hx COPD: Yes - Surgical History Past Surgical History?: Yes Hx Coronary Stent: Yes (12/2015) Additional Surgical History: hysterectomy - Family History Family history: no significant - Social History Smoking Status: Never Smoker Substance Use Type: None - Medications Home Medications: Home Medications Medication Instructions Recorded Confirmed Last Taken Type Calcium 06/28/18 06/25/18 History Eliquis PO BID 06/28/18 06/26/18 History Magnesium 06/28/18 Unknown History Quetiapine Fumarate [Seroquel] 100 mg PO QHS 06/28/18 06/28/18 06/26/18 History 100 MG Vitamin D (Nf) 06/28/18 06/25/18 History Pantoprazole [Protonix TAB] 40 mg PO BID #30 tablet 06/30/18 Unknown Rx predniSONE [Deltasone] 20 mg PO DAILY #5 tablet 08/18/18 Unknown Rx ED Physical Exam - General Limitations: No Limitations General appearance: alert, in no apparent distress - Head Head exam: Present: atraumatic, normocephalic - Eye Eye exam: Present: normal appearance, PERRL - ENT ENT exam: Present: mucous membranes moist - Neck Neck exam: Present: normal inspection, full ROM - Respiratory Respiratory exam: Present: normal lung sounds bilaterally - Cardiovascular Cardiovascular Exam: Present: regular rate - GI/Abdominal GI/Abdominal exam: Present: soft - Rectal Rectal exam: Present: deferred - Extremities Exam Extremities exam: Present: normal inspection, full ROM - Back Exam Back exam: Present: normal inspection, full ROM - Neurological Exam Neurological exam: Present: alert, oriented X3 - Psychiatric Psychiatric exam: Present: normal affect, normal mood - Skin Skin exam: Present: warm, dry, intact ED Course Vital Signs 08/18/18 13:04 Temperature 98.6 F Pulse Rate 92 H Respiratory 20 Rate Blood Pressure 130/62 O2 Sat by Pulse 95 Oximetry - Reevaluation(s) Reevaluation #1: 08/18/18 15:39 home meds symbicort albuterol combigan tresiba protonix B12 Ca calcitriaol folic acid imdur trintellix eloquis iron buspar quetiapine tramadol synthroid kari statin ED Recheck MDM - Core Measures Measure Exclusions: not indicated - Medical Decision Making full rom wrist- n/v intact ambulatory on heal- n/v intact a/c issue- on home ultram and kari does not see pain no trauma per pt Vital Signs 08/18/18 13:04 Temperature 98.6 F Pulse Rate 92 H Respiratory 20 Rate Blood Pressure 130/62 O2 Sat by Pulse 95 Oximetry BS 70 this AM discussed her diet while on steroids taking home meds VSS NAD no cp no sob medicated in ER dc home with PCP referral Critical care attestation.: If time is entered above; I have spent that time in minutes in the direct care of this critically ill patient, excluding procedure time. ED Disposition Clinical Impression: Acute exacerbation of chronic low back pain Disposition: DC-01 TO HOME OR SELFCARE Is pt being admited?: No Does the pt Need Aspirin: No Condition: Stable Additional Instructions: follow diabetic diet monitor while on prednisone as we discussed MEDS ORDERED continue home meds FOLLOW UP PCP referral below ACTIVITY TOLERATED Referrals: [facility] [Outside] - 3-5 Days Time of Disposition: 15:36
== END 2018-08-18 15:54 | disposition home or self-care (01) ==
LOC: ED 12:52
DX: G89.29 Other chronic pain (principal); M25.532 Pain in left wrist; M54.5 Low back pain; M25.572 Pain in left ankle and joints of left foot; I10 Essential (primary) hypertension; E11.9 Type 2 diabetes mellitus without complications; F31.9 Bipolar disorder, unspecified; F20.9 Schizophrenia, unspecified; F43.10 Post-traumatic stress disorder, unspecified; F29 Unspecified psychosis not due to a substance or known physiological condition; J44.9 Chronic obstructive pulmonary disease, unspecified; Z95.5 Presence of coronary angioplasty implant and graft; Z90.710 Acquired absence of both cervix and uterus; Z88.8 Allergy status to other drugs, medicaments and biological substances; Z88.2 Allergy status to sulfonamides
CPT/HCPCS: 96372; 99282; J1885